=== PATIENT | male | born 1985 | race Caucasian/White ===

== ENCOUNTER 2019-08-04 09:00 | Outpatient (RCR) | payer OTHER, SELFPAY ==
--- NOTE | 2019-08-04 10:02 | BH.SGPN.GN ---
Behaviors/Verbalizations/Mental Status: []Client alert and oriented, neatly dressed and groomed. Eye contact intense. Motor activity appropriate. Speech within normal limits. Affect flat, mood dysthymic. Thoughts linear, logical, no signs of hallucinations or delusions. Client Response/Progress/Benefit: []Client was attentive and participating during discussion. Client participated in discussion of the quote and shared belief that people do not always have the choice of their circumstances, but one can control their response. Client nodding and attentive while the group identified barriers that keep one from choosing a new and healthier path to mental wellness which included; unhealthy habits, fear of failure, procrastination, stigma, lack of supports, and negative thinking. Client stated ?my ego gets in the way? of client reaching out for help. Attentive during psychoeducation on the chapters of life. Client agreed with peers to choose a different path, one needs awareness and opposite action. Client reported he was not sure what made him want to change his mental health path. Benefited from increased awareness and education on barriers to choosing new wellness paths and chapters of life. Client?s first day of IOP tx. Will continue IOP to prevent decompensation of symptoms and improve mood stability. Narrative Note: []
--- NOTE | 2019-08-04 10:55 | BH.COMM ---
Communication Note - Communication with Client Communication Note: Completed intake paperwork with client today. Completed the [place] Suicide Severity Scale (CSSR-S) Lifetime Recent to assess for suicidal risk. Client denies any history of suicidal ideations or attempts. Reports passive thoughts of of not wanting to wake up, but denies active SI, plan, and intent. Client reports his family is his major motivation to live. Client denies any current suicidal thoughts, intention and plan. Per the CSSR-S client has a low risk for suicide. Client feels able to maintain safety, agreeable to call 911 or go to nearest emergency room if feels unable to maintain safety.
--- NOTE | 2019-08-04 11:10 | BH.SGPN.GN ---
Behaviors/Verbalizations/Mental Status: []Client alert and oriented, casually dressed and groomed. Eye contact good. Motor activity appropriate. Speech within normal limits. Affect constricted, mood dysthymic. Thoughts linear, logical, no signs of hallucinations or delusions. Client Response/Progress/Benefit: []Client was an active participant in group discussion, contributing to discussion and listened attentively to others. Completed worksheet and willing to share with the group. Client reported believe he is currently in chapter 3? as client shared he has awareness of his triggers to anger, but continues to struggle with utilizing skills to manage his anger more effectively. Client shared to get to the next chapter he will take responsibility for his wrong doings, admit he needs help, and communicate to his supports how they can best support him. Client identified things currently doing that will help him get to the next chapter include communicating with family and friends how he is feeling and attempted to understand his feelings. Benefited from group by identifying thoughts and behaviors that have kept him stuck and developing plan to promote progress. Will continue in IOP to improve emotional regulation, continue to use healthy coping skills and prevent decompensation. Narrative Note: []
--- NOTE | 2019-08-05 10:20 | BH.SGPN.GN ---
Behaviors/Verbalizations/Mental Status: []Eye contact is good. Motor activity is appropriate. Appearance is casual. Speech is Appropriate. Mood is dysthymic. Affect is constricted. Thoughts are linear and logical. No evidence of psychosis. Client Response/Progress/Benefit: []Participated at times during discussions providing some insight. Attentive during psychoeducation on differences between fixed and growth mindset. Worked with group to identify how a fixed mindset can impact our mental health which included: not trying new things, believing can't get better, keeping us stuck, decreasing motivation, and avoiding challenges. Pt identified one fixed thought he has is, People don't care about me unless they need me. Pt stated this fixed thought results in him being unwilling to accept help. Pt reported another fixed thought he has is, I don't have enough energy to function today. Reported this fixed thought makes him not want to do anything. Benefited from group by increasing awareness of how one's mindset impacts our mental health. Narrative Note: []
--- NOTE | 2019-08-05 11:23 | BH.SGPN.GN ---
Behaviors/Verbalizations/Mental Status: []Client alert and oriented, casually dressed and groomed. Eye contact good. Motor activity appropriate. Speech within normal limits. Affect flat, mood dysthymic. Thoughts linear, logical, no signs of hallucinations or delusions Client Response/Progress/Benefit: []Client attentive, engaged during discussion and activity. Contributed to discussion on how the group was successful in the activity because they were encouraging and had growth-mindset thoughts. Client did well to apply cognitive restructuring to reframe previously identified fixed thoughts, transforming his fixed thought from previous group to a growth thought of ?people do care about me because they are still in my life.? Client shared he is trying to challenge his ego and ask for help when he needs it. Client participated as the group brainstormed strategies to promote growth-mindset thinking. Client selected the strategy of using not yet phrases to improve his growth-mindset thinking. Benefitted from discussing benefits of growth mindset and brainstorming strategies for prompting growth-mindset. Client?s second day of IOP. Appears to be assimilating well to the group setting and gaining insight. Will continue IOP tx to prevent decompensation and increase emotional regulation skills. Narrative Note: []
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
--- NOTE | 2019-08-05 11:59 | BH.DR.ITP ---
Initial Treatment Plan - Patient Information Visit Information: ADMISSION DATE: EXPECTED LOS: 4-6 weeks - Problems/Symptoms Problem #1:: Depression Symptom:: hopelessness, guilt, rumination, anger outbursts
--- NOTE | 2019-08-05 13:43 | BH.COMM ---
Communication Note - Communication with Client Communication Note: Therapist met with client to gather treatment goals and to introduce self as client's individual therapist. Client identified his treatment goals which included; becoming more willing to ask for help, reduce depression and be happier, better manage stressors in daily life, and improve energy levels. Client reports he is receptive to learning about how to better manage his depressive symptoms.
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
--- NOTE | 2019-08-06 09:05 | BH.SGPN.GN ---
Behaviors/Verbalizations/Mental Status: [] Eye contact is good. Motor activity is appropriate. Appearance is disheveled. Speech is Appropriate. Mood is anxious. Affect is congruent. Thoughts are linear and logical. No evidence of psychosis. Reviewed daily check in sheet and no reports of suicidal ideations or intent. Client Response/Progress/Benefit: [] Pt participated in group discussion at times. Emotion for today is optimistic. Shared that he reached out to friends whom he has not talked with in awhile. Positive interaction and they came over the house and they jammed. Played the [employer]Cloudwords for the first time in over a year. Feels optimistic about the future. Some insight on his personality stating the he often takes things to the extreme mentioning he rarely drinks however when he does he drinks too much. Progress noted per pt report. Benefited from group support, encouragement, and feedback. Will continue in IOP to stabilize mood, increase healthy coping, and prevent decompensation. Narrative Note: []
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
--- NOTE | 2019-08-06 11:14 | BH.SGPN.GN ---
Behaviors/Verbalizations/Mental Status: [Client alert and oriented, casually dressed and well groomed. Eye contact good. Motor activity appropriate. Speech within normal limits. Affect congruent, mood euthymic, anxious. Thoughts linear, logical, no signs of hallucinations or delusions.] Client Response/Progress/Benefit: [Client responded well to session, active participant. Client further processed the group activity and shared that trust, patience, a resendez encouragement helped the group accomplish the activity. Client completed the fear of failure worksheet and reported that fear of failure is keeping him from following through with goals and improving personal relationships. Client reported barriers for overcoming fear of failure are second guessing, guilt, difficulty communicating, and worrying that he will be judged by others. Client shared he has been able to bounce back from setbacks in the past and the positive thing he has learned from past failures is that failure can make you more resilient and teach you how not to cope. Client selected a goal to help overcome fear of failure. Client?s goal is to practice self-awareness and calming strategies, so he can prevent escalating to point of crisis. Client appeared to benefit from gaining awareness and setting a goal to reduce fear of failure. Client showing progress in utilizing healthy coping to skills to manage emotions. Recommended continued IOP tx to prevent decompensation, decrease depression, and maintain gains.] Narrative Note: []
[2019-09-09 12:01] VITALS: BP 121/93; PULSE 96; RESP 16
== END 2019-08-06 23:59 ==
LOC: BHIOP 09:00
PROVIDERS: Referring Provider Psychiatry & Neurology Psychiatry; Visit Provider Psychiatry & Neurology Psychiatry
DX: F33.2 Major depressive disorder, recurrent severe without psychotic features (principal); F98.8 Other specified behavioral and emotional disorders with onset usually occurring in childhood and adolescence; F17.210 Nicotine dependence, cigarettes, uncomplicated; F12.90 Cannabis use, unspecified, uncomplicated
CPT/HCPCS: H0035; 90853

== ENCOUNTER 2019-08-07 09:00 | Outpatient (RCR) | payer OTHER, SELFPAY ==
--- NOTE | 2019-08-07 10:15 | BH.SGPN.GN ---
Behaviors/Verbalizations/Mental Status: [Client alert and oriented, casually dressed and appropriately groomed. Eye contact good. Motor activity appropriate. Speech within normal limits. Affect congruent, mood anxious, dysthymic. Thoughts linear, logical, no signs of hallucinations or delusions] Client Response/Progress/Benefit: [Client an active participant in group AEB providing input, actively listening, as well as taking notes throughout. Group worked together to identify barriers to making changes or taking action in their lives which included: fear of the unknown, guilt, catastrophizing, shame, pride, fear of leaving comfort zone, denial of need to change, and lack of motivation. Group also identified the benefits of change which included; improved relationships, increased trust, emotion regulation, increased confidence, improved ability to manage stressors, and personal growth. Client identified areas he would like to take back control over to include: effective communication, guilt, ego, and pride. Benefited from group through increased awareness of personal areas she wants to improve and benefits to taking action towards mental wellness. Progress noted in personal reflection of areas he would benefit from making changes for her mental health. Pt is recommended continued IOP level of care to improve anger and depression management, ability to cope with stressors, and prevent decompensation.] Narrative Note: []
--- NOTE | 2019-08-07 11:18 | BH.SGPN.GN ---
Behaviors/Verbalizations/Mental Status: []Client alert and oriented, casually dressed and groomed. Eye contact good. Motor activity appropriate. Speech within normal limits. Affect constricted, mood dysthymic. Thoughts linear, logical, no signs of hallucinations or delusions. Client Response/Progress/Benefit: []Client was an active participant AEB client participating in discussion and working well in his small group. Client attentive and providing input to discussion of the different zones of taking action as well as the pros and cons of each. Client agreed with peers that it best to push oneself, but one does not want to burn out. Client completed worksheet in which he identified a problem area to focus on, a SMART goal to help work on problem area, and identify additional supports needed to be successful. Client identified he wants to stop withdrawing from his supports and start asking for help. Client identified a small goal which is to talk with one family member this week and tell them about his current mental health symptoms. Client stated additional supports needed to be successful with goal include: setting aside time, setting reminders, and using positive self-talk. Appeared to benefit from creating a small goal to help client reach out to supports and reduce isolative behaviors. Will continue IOP level of care to prevent decompensation of depressive symptoms and learn healthy coping skills. Narrative Note: []
--- NOTE | 2019-08-11 09:07 | BH.SGPN.GN ---
Behaviors/Verbalizations/Mental Status: []Client alert and oriented, casually dressed and groomed. Eye contact good. Motor activity appropriate. Speech within normal limits. Affect flat, mood dysthymic. Thoughts linear, logical, no signs of hallucinations or delusions. Reviewed client?s symptom tracker, no risk for suicidal ideation, plan, or intent as of 08/11/19. Client Response/Progress/Benefit: []Client responded well to session, attentive and engaged throughout session. Client reports feeling ?indifferent? today. Client shared he did not have a great weekend and that he and his got into an argument. Client reported his is willing to come in for a family session to help the couple communicate better. Client shared despite a challenging weekend, he did use some coping skills which included being honest about what was bothering him and taking care of some responsibilities instead of avoiding them. Client able to identify ways he can better manage conflict in the future such as taking breaks and using calming skills. Appeared to benefit from reviewing healthy coping skills. Progress noted in client?s increased self-awareness. Will continue IOP tx as client continues to struggle with mood instability and regulating his anger. Narrative Note: []
--- NOTE | 2019-08-11 10:20 | BH.SGPN.GN ---
Behaviors/Verbalizations/Mental Status: []Client alert and oriented, casually dressed and groomed. Eye contact good. Motor activity appropriate. Speech within normal limits. Affect constricted, mood dysthymic. Thoughts linear, logical, no signs of hallucinations or delusions. Client Response/Progress/Benefit: []Pt engaged participant AEB pt providing input during discussion and appeared to listen attentively to peers. Pt appeared to connect with others comments about the negative impact of defining self by mental illness. Group identified social stigma can come from how the media, society, and upbringing portray mental illness. Group identified media and society portray mental health as: dangerous, negative, not good enough, abnormal, and romanticize it. Pt stated he told his family about his mental health by telling his family I went crazy. Pt stated it's easier to use humor when talking about mental health. Pt seemed to benefit from increased awareness of how societal and internal mental health stigma can impact functioning. Pt progressing with improved insight and awareness of his negative thought patterns. Pt to continue IOP level of care to continue to use healthy skills, challenge negative thoughts, and prevent decompensation. Narrative Note: []
--- NOTE | 2019-08-11 11:25 | BH.SGPN.GN ---
Behaviors/Verbalizations/Mental Status: [Client alert and oriented, casually dressed and appropriately groomed. Eye contact good. Motor activity appropriate. Speech within normal limits. Affect congruent, mood anxious and dysthymic. Thoughts linear, logical, no signs of hallucinations or delusions.] Client Response/Progress/Benefit: [Client responded well to session, engaged in activity and discussion. Group identified the benefits of addressing stigma which included; increased self-confidence, feeling accepted, improved relationships, and less self-deprecation. Client helped the group identify thoughts and behaviors people engage in that reinforce stigma. Client reported he uses self-deprecating talk and ?ego? or pride reinforces stigma in his life. Group brainstormed strategies to combat social and perceived stigma which included; changing personal language used, sharing positive mental health related media, communicating with supports, and increasing psychoeducation of self and others to reduce labeling behaviors. Client reported he will practice increasing self-awareness and challenging use of distorted thoughts which reinforce unrealistic expectations of self/others to combat stigma. Appeared to benefit from increasing awareness of ways he reinforces stigma and how to combat stigma. Will continue IOP tx to further reduce isolation and avoidance, as well as increase the use of emotional regulation skills.] Narrative Note: []
--- NOTE | 2019-08-12 09:05 | BH.SGPN.GN ---
Behaviors/Verbalizations/Mental Status: []Client alert and oriented, casually dressed and groomed. Eye contact good. Motor activity appropriate. Speech within normal limits. Affect flat, mood depressed. Thoughts linear, logical, no signs of hallucinations or delusions. Reviewed client?s symptom tracker, no risk for suicidal ideation, plan, or intent. Client Response/Progress/Benefit: []Pt engaged in session as shown by pt openly expressing thoughts and emotions. Pt identified a mental health positive as improving his relationship with his daughter since he has more time home recently. Pt stated another mental health positive is doing something productive everyday, even when he is feeling bored. Pt identified current stressor as being marriage and fear of the unknown. Pt seemed to benefit from support by peers. Pt showing progress with increased awareness of distorted thoughts and improved ability to challenge his negative perspective. Pt to continue IOP to increase healthy coping, challenge negative thoughts, and prevent decompensation. Narrative Note: []
--- NOTE | 2019-08-12 10:22 | BH.SGPN.GN ---
Behaviors/Verbalizations/Mental Status: []Client alert and oriented, casually dressed and groomed. Eye contact good. Motor activity appropriate. Speech within normal limits. Affect flat, mood dysthymic. Thoughts linear, logical, no signs of hallucinations or delusions. Client Response/Progress/Benefit: []Client was an active participant as evidenced by providing to discussion and listening attentively to peers. The group discussed the quote and how the emotion anger is not good or bad, but one can respond to anger in healthy or harmful ways. Client worked with the group to define anger and its causes, as well as the internal and external impacts of anger. Group identified potential consequences of unhealthy management of anger to include: losing relationships, guilt, loss of job, increased stress, and worsening mental health symptoms. Client identified underlying factors of his anger which included: resentment, financial stress, feeling unheard, lack of understanding, jealousy, and not being respected. Client stated getting loud, acting out violently, saying things he does not mean, and being ?a smart ass? are common responses he has when feeling angry. Benefited from group by increasing awareness of the negative impacts of unmanaged anger and underlying factors that contribute to his personal anger. Progress noted as client reports he has been thinking more about his behaviors before reacting to situations. Will continue IOP tx to prevent decompensation and further improve emotional regulation skills. Narrative Note: []
--- NOTE | 2019-08-12 11:30 | BH.SGPN.GN ---
Behaviors/Verbalizations/Mental Status: [Client alert and oriented, casual dress, hygiene tended to. Eye contact good. Motor activity appropriate. Speech within normal limits. Affect congruent, mood euthymic. Thoughts linear, logical, no signs of hallucinations or delusions. ] Client Response/Progress/Benefit: [Pt remained an active participant throughout AEB engagement in both activity and discussion potions of session. Pt did well to challenge himself to complete the group activity and incorporate anger management/emotion regulation skills in order to do so. He worked with the group to identify the various barriers faced in the activity as well as skills used to successfully complete the task at hand without becoming dysregulated or overwhelmingly angry. Pt did well to utilize humor as a means of maintaining calm. Pt identified barriers impacting his ability to better manage anger related symptoms as: his ego, impatience, and focusing on things outside of his control. Pt appeared to benefit from discussion regarding potential benefits of anger and brainstorming with the group potential strategies for means of harnessing anger in healthy ways. Pt identified plans to begin using journaling as a means of coping with anger related sx. Recommended continued IPO tx to reduce mental health sx, continue to promote emotion regulation and effective communication, and prevent decompensation.] Narrative Note: []
--- NOTE | 2019-08-12 12:00 | BH.MDN_ITS ---
Multi-Disciplinary Note - Note 30-min Individual Time Started:: 12:27 Date: 08/12/19 Purpose of session/treatment goals addressed:: The purpose of this session was to address current symptoms, stressors, and supports. Another goal was to learn the common cognitive distortions and how they impact mental health. Other topics included maintenance cycles. Eye Contact:: Good Motor Activity:: Appropriate Appearance:: Casual Speech:: Soft Mood:: Euthymic Affect:: Constricted Thoughts:: Linear, Logical, No evidence of hallucinations/delusions noted Staff Interventions:: Therapist used active listening and open-ended questions to explore client's current stressors, symptoms, and barriers with support. Therapist provided psychoeducation on maintenance cycles and cognitive distortions. Therapist taught client how thoughts impact behaviors and emotions. Therapist used strengths perspective to empower client on his generalization of coping skills since starting the program. Therapist gave client homework to have awareness of distortions and write out his personal maintenance cycles. Client Response:: Client responded well to session, open to meeting with therapist and learning about maintenance cycles. Client reported he feels like he is managing his anger better and stated he has been keeping himself calm. When asked what has helped him stay calm, however, client could not identify a specific coping skill that helped with this. Client shared he wants to have his come in for a family session next week. Client reported he wants to work on better communication and patience with his . Client receptive to learning about the common distortions and connected with all of them. Client recognized that he most often uses disqualifying the positives, overgeneralizing, shoulding, and jumping to conclusions. Client able to see how these distortions impact behaviors and emotions. Connected how thoughts reinforce depressive maintenance cycles. Client receptive to identifying his personal maintenance cycles and practicing self-awareness of distortions. Risks/Concerns:: Client denies any suicidal ideations, plan, or intent as of 08/12/19. Future oriented and reporting a more positive outlook. Progress Toward Goals/Plan:: Client's second week in [facility] and seems to be assimilating well into the group setting. Reports increased awareness of symptoms and unhealthy coping skills. Client shared he has been trying to apply coping skills he has learned in group sessions. Client reported some side effects to medication and would like this therapist to communicate this to the [facility] psychiatrist. Client continues to endorse a depressed mood with irritability, rumination, guilt, and negative thinking. Client will continue IOP tx to promote use of healthy coping skills and prevent decompensation. Time Stopped:: 12:55
--- NOTE | 2019-08-13 09:10 | BH.SGPN.GN ---
Behaviors/Verbalizations/Mental Status: [] Eye contact is good. Motor activity is appropriate. Appearance is disheveled. Speech is Appropriate. Mood is depressed. Affect is flat. Thoughts are linear and logical. No evidence of psychosis. Reviewed daily check in sheet and no reports of suicidal ideations or intent. Client Response/Progress/Benefit: [] Pt participated at times during group discussion. Emotion for today anticipatory. Shared with the group that he had a good talk with his last night. Stated that the reached some common ground and he understands that he needs to be more empathetic. Briefly talked about the topics they discussed and why it was beneficial for his mental health and for their relationship. He even shared that he used some active listening skills with his yesterday as well which was helpful. Pt has also reached out to some friends and is planning to be more consistent with self-care and socialization to help with his stress and anger. Progress noted. Benefited from group support, encouragement, and feedback. Will continue in IOP to stabilize mood, prevent decompensation, and increase healthy coping skills. Narrative Note: []
--- NOTE | 2019-08-13 10:20 | BH.SGPN.GN ---
Behaviors/Verbalizations/Mental Status: []Client alert and oriented, casually dressed and groomed. Eye contact good. Motor activity appropriate. Speech within normal limits. Affect constricted, mood euthymic. Thoughts linear, logical, no signs of hallucinations or delusions. Client Response/Progress/Benefit: []Client responded well to session, attentive and participating in discussion. Client commented on quote and shared certain ?huitron? in life are placed by external circumstance-such as socioeconomic status-while other ?huitron? are put up by how one blaine with those circumstances. Participated in discussion of things that can keep people feeling trapped or stuck in life including; fixed thinking, not letting people in, alcohol and drugs, lack support, and lack of confidence. Group discussed the connection between thoughts, emotions, and behaviors as well as how negative thinking can keep a person stuck. Client attentive during psychoeducation on maintenance cycles and reports relating to the maintenance cycles. Client able to identify negative thoughts that have reinforced depression and kept client feeling trapped. Client shared negative thoughts that have kept him stuck which included: ?this is what I?ve been born into, this is just who I am, I don?t deserve to be happy, I don?t care for whoever?s opinion.? Appeared to benefit from gaining awareness of how negative thoughts reinforce mental health symptoms and keep people stuck. Progress noted in client?s report of increased awareness of his negative thoughts. Will continue IOP tx to prevent decompensation of depressive symptoms and increase emotional regulation. Narrative Note: []
--- NOTE | 2019-08-13 11:22 | BH.SGPN.GN ---
Behaviors/Verbalizations/Mental Status: []Client alert and oriented, casual in appearance. Eye contact fair. Motor activity appropriate. Speech within normal limits. Affect constricted, mood dysthymic. Thoughts linear, logical, no signs of hallucinations or delusions. Client Response/Progress/Benefit: []Client responded well to session, quiet, participating when prompted. Client appeared to connect with how negative thinking can keep a person stuck. Client identified a negative thought that has kept him stuck. Client?s thought was ?I don't care about my 's opinions.? Client stated when he has this thought he becomes dismissive, annoyed, agitated, and feels like he is not part of the conversation. Client able to reframe the thought to ?everyone wants to be heard and validated. This is something she is passionate about and this is someone I care about so I should care about their opinion.? Client shared this thought would improve his mental health because he would be more receptive of his 's opinions which would decrease fighting and improve his marriage. Client appeared to benefit from practicing challenging negative thinking. Client progressing with improved emotional regulation and awareness of unhealthy thought patterns. Client to continue IOP to continue to challenge and reframe negative thoughts, continue to use healthy coping, and prevent decompensation. Narrative Note: []
--- NOTE | 2019-08-14 10:22 | BH.SGPN.GN ---
Behaviors/Verbalizations/Mental Status: [Client alert and oriented, casually dressed and groomed. Eye contact good. Motor activity appropriate. Speech within normal limits. Affect congruent, mood euthymic. Thoughts linear, logical, no signs of hallucinations or delusions] Client Response/Progress/Benefit: [Client was an active participant in group activity and discussion, providing insight and asking questions throughout. Client connected with the topic and worked with group to identify common internal barriers that keep people stuck. Barriers discussed included; fear, feelings of guilt about the past, and unrealistic expectations for self and others. Client connected with discussion regarding how these barriers can impact relationships and mental health. Shared personal example of how fear has impacted his marriage. Client identified his current reality as feeling as though he is trapped in a machine and other?s have the controls. Noted that he feels similarly about his ability to make decisions in life. Shared feeling that it is all he can do to keep from being crushed by it. Client shared a realistic, desired reality would be taking over the controls and that the others are still around him but not in control. Client benefited from group as client was able to identify current mental health state and barriers that are impacting progress. Progress noted in ability to discuss how his internal barriers have maintained anger and reduced ability to connect with supports. Will continue IOP to increase consistent skill application, reduce anger and improve communication, and prevent decompensation.] Narrative Note: []
--- NOTE | 2019-08-14 11:22 | BH.SGPN.GN ---
Behaviors/Verbalizations/Mental Status: []Eye contact is good. Motor activity is appropriate. Appearance is casual. Speech is Appropriate. Mood is depressed. Affect is constricted. Thoughts are linear and logical. No evidence of psychosis. Client Response/Progress/Benefit: []Pt was an active participant in group discussion and activity. Able to identify fear of fighting change, not letting go of things can't control, misunderstanding situations, lacking empathy for others, not being assertive when needed, and not communicating his true feelings as obstacles which are preventing him from achieving him desired reality. Active during activity. Pt along with peers identified various obstacles during the activity and developed 3 strategies to overcome those obstacles to wellness and desired reality. Group wrote down the strategies and added them to their program binder. Benefited from group by identifying obstacles and solutions to desired reality. Narrative Note: []
--- NOTE | 2019-08-17 10:25 | BH.SGPN.GN ---
Behaviors/Verbalizations/Mental Status: []Client alert and oriented, casual in appearance. Eye contact fair. Motor activity appropriate. Speech within normal limits. Affect constricted, mood dysthymic. Thoughts linear, logical, no signs of hallucinations or delusions. Client Response/Progress/Benefit: []Client active participant as evidenced by client providing input throughout discussion and appeared to listen attentively to others. Client agreed with others that he experiences automatic negative thoughts. Client connected with the discussion about how distorted thought patterns can reinforce mental health symptoms. Client reported he has used fortune telling before having a conversation about how the other person is going to react. Client stated using fortune telling impacts his own behavior which then impacts relationships. Client reported with mental filter he can only look for the evidence he wants to see, which doesn't tend to be positive. Appeared to benefit from increasing awareness of cognitive distortions and how they can impact emotions and behaviors. Client to continue IOP to stabilize moods, continue use of healthy coping skills, and prevent decompensation. Narrative Note: []
--- NOTE | 2019-08-17 11:25 | BH.SGPN.GN ---
Behaviors/Verbalizations/Mental Status: []Client alert and oriented, disheveled appearance. Eye contact fair. Motor activity appropriate. Speech within normal limits. Affect constricted, mood irritable, dysthymic. Thoughts linear, logical, no signs of hallucinations or delusions. Client Response/Progress/Benefit: []Client responded well to session AEB participating in activity and contributing in group discussion. Client connected with the discussion about how distorted thought patterns can reinforce mental health symptoms. Client worked with the group on defining the various types of cognitive distortions and identifying how each distortion can negatively impact mental health. Client reported when he is depressed and anger it is hard to challenge his distortions and see things from a different perspective. Client acknowledged that replacing distorted thoughts will take time and effort. Client worked with his small group as they practiced thought challenging by identifying distortions and replacing them with more realistic statements. Client attentive during psychoeducation on strategies to combat distortions. Client selected the strategy of identifying the evidence and looking at both side of his negative thought. Appeared to benefit from increasing awareness of cognitive distortions and practicing thought challenging. Presents to group today with increased depressive symptoms due to a recent stressor with his . Will continue IOP tx to prevent decompensation and improve emotional regulation skills. Narrative Note: []
--- NOTE | 2019-08-17 14:51 | BH.MDN ---
Multi-Disciplinary Note - Note 45-min Individual Time Started:: 12:30 Date: 08/17/19 Purpose of session/treatment goals addressed:: The purpose of this session was to address current symptoms, stressors, and triggers. Another goal was to discuss how unmanaged stress impacts all areas of client?s life. Other topics included; family session and communication strategies. Eye Contact:: Fair Motor Activity:: Appropriate Appearance:: Casual Speech:: Soft Mood:: Dysthymic Affect:: Flat Thoughts:: Linear, Logical, No evidence of hallucinations/delusions noted Staff Interventions:: Therapist used active listening and open-ended questions to explore client's current stressors, symptoms, and triggers. Therapist provided psychoeducation on how stress impacts social, emotional, cognitive functioning. Therapist helped client gain awareness of how unmanaged stress impacts his relationship with his . Therapist assisted client in setting small goals for today to prevent client from continuing an ongoing depressive maintenance cycle. Therapist gave client homework to practice opposite action. Client Response:: Client responded well to session, open to meeting with therapist. Client reported his weekend did not go well as he and his fought, and he fell back into some old, unhealthy patterns. Client shared he threw an ottoman and yesterday he laid on the couch all day. Client acknowledged that this was not a healthy way to deal with his depression. Client stated that he and his have many communication issues and that it is hard for him to make progress because of this. Client receptive to learning about stress and how it impacts one's social, cognitive, and emotional functioning. Client reports currently his stress jar is completely full and he believes his 's is as well. Client able to recognize that because both he and his are so stressed, any small thing sends them over the edge which results in fighting. Receptive to learning ways to reduce and better manage stressors to prevent unhealthy responses. Client plans to reach out to a friend today and to do something physical to release emotions. Client also will talk with his about the upcoming family session. Client and therapist discussed goals and expectations for the family session as well. Risks/Concerns:: Client denies any suicidal ideations, plan, or intent as of 08/17/19. Progress Toward Goals/Plan:: Client has been doing well with learning coping skills and he self-reports increased insight. However, client today presents with increased depressive symptoms due to issues with his over the weekend. Client shared he has been trying to apply coping skills he has learned in group sessions, but he and his continue to have problems. Client?s is receptive to coming in for a session this week. Client continues to endorse a depressed mood with irritability, rumination, guilt, and negative thinking. Client will continue IOP tx to prevent decompensation of anger and depressive symptoms as well as improve interpersonal relationship skills. Time Stopped:: 13:15
--- NOTE | 2019-08-18 09:08 | BH.SGPN.GN ---
Behaviors/Verbalizations/Mental Status: [Client alert and oriented, casual dress, hygiene tended to. Eye contact good. Motor activity appropriate. Speech within normal limits. Affect congruent, mood euthymic and positive. Thoughts linear, logical, no signs of hallucinations or delusions. Reviewed client?s symptom tracker, no signs of suicidal ideation, plan, or intent as of today. ] Client Response/Progress/Benefit: [Pt responded well to session, actively engaged throughout and providing increased positive contributions to group. Pt noted his emotion for the day is ?hopeful? and indicated that this is due to his ?s willingness to continue to work with him on improving their relationship. Pt identified that ongoing marital tension is the major stressor impacting his mental health at this time. Able to identify current mental health wins as not letting various ?rough moments? in the weekend discourage him and instead reminded himself ?we are working on things and each day it?ll get a little bit better?. He expressed an additional win as realizing when he was beginning to shut down on Saturday and practicing applying positive self-talk and self-compassion skills to keep from maintaining his depressed mood. Pt progress noted in increased levels of insight and he appears to benefit from the shared experience of the tx environment. Recommended continued IOP tx to continue to promote change behaviors, increase emotion regulation skills, and prevent decompensation.] Narrative Note: []
--- NOTE | 2019-08-18 10:25 | BH.SGPN.GN ---
Behaviors/Verbalizations/Mental Status: []Client alert and oriented, casually dressed and groomed. Eye contact good. Motor activity appropriate. Speech within normal limits. Affect congruent, mood euthymic. Thoughts linear, logical, no signs of hallucinations or delusions. Client Response/Progress/Benefit: []Client receptive of session, attentive in discussion and activity. Client discussed the quote and shared ?managing emotions doesn?t mean suppressing them.? Client helped group identify the consequences of not effectively managing emotions which included; strained relationships, guilt, suppressing emotions, increased negative thinking, resentment, blowing things out of proportion, and impulsive behaviors. Group identified barriers that impact one?s ability to communicate when emotions are high. These barriers included; acting on impulse, shutting down, physical aggression, assumptions, and misinterpretations. Client shared that he has communicated his emotions through behavior before which ?just leads to self-sabotage.? Client participated in the activity and did well to manage his emotions. Client appeared to benefit from increasing awareness of how emotions can impact communication and practicing in the moment coping skills. Progress noted as client reports improved self-awareness and learning healthy coping skills. Will continue IOP tx as client continues to struggle with emotional regulation and managing depressive symptoms. Narrative Note: []
--- NOTE | 2019-08-19 09:04 | BH.SGPN.GN ---
Behaviors/Verbalizations/Mental Status: []Client alert and oriented, casually dressed and groomed. Eye contact good. Motor activity appropriate. Speech within normal limits. Affect constricted, mood euthymic. Thoughts linear, logical, no signs of hallucinations or delusions. Reviewed client?s symptom tracker, no risk for suicidal ideation, plan, or intent as of 08/19/19. Client Response/Progress/Benefit: []Client responded well to session, attentive and contributing to discussion. Client reports feeling ?content? today. Client shared he and his did not fight last night and he has been trying to be a better communicator. Client stated he has been trying to listen more and see things from his ?s perspective. Client recognizes that he has a long way to grow, but he feels more confident in his ability to manage conflicts. Client?s stressor today is that he is worried about his finances, but he reports belief this will be a temporary stressor. Appeared to benefit from reflecting on how he can better manage conflict with his . Will continue IOP tx to promote mood stability, further decrease anger, and improve communication skills. Narrative Note: []
--- NOTE | 2019-08-19 10:08 | BH.SGPN.GN ---
Behaviors/Verbalizations/Mental Status: []Eye contact is good. Motor activity is appropriate. Appearance is casual. Speech is Appropriate. Mood is dysthymic. Affect is flat. Thoughts are linear and logical. No evidence of psychosis. Client Response/Progress/Benefit: []Pt was an engaged participant in activity as evidenced by pt providing input at times during discussion and attentively listened to others. Group worked together to come up with common negative forces in their lives which can hold them back from growth. Negative forces included: toxic relationships, negative thoughts, low motivation, and unhealthy environment. Group then worked together to identify common positive forces which help us grow. These included: Healthy coping skills, positive support, self-care, patience, realistic and positive thinking, and following treatment suggestions. Pt stated he recognizes he can't just focus on negative forces in his life or he will just stay stuck. Pt was attentive during psychoeducation on the importance of utilizing many aspects of positive forces to help one grow. Benefited from group with increased insight and awareness on the impact of negative and positive forces on mental wellness. Narrative Note: []
--- NOTE | 2019-08-19 11:07 | BH.SGPN.GN ---
Behaviors/Verbalizations/Mental Status: [Client alert and oriented, casually dressed and groomed. Eye contact good. Motor activity appropriate. Speech within normal limits. Affect constricted and mood anxious. Thoughts linear, logical, no signs of hallucinations or delusions.] Client Response/Progress/Benefit: [Client willing to participate in activity and provided some input during discussion. He did well to work with the group and actively listen as others provided suggestions/feedback. Client engaged in discussion reviewing positive and negative forces impacting life and mental wellness. Client identified positive forces that aid in progressing toward mental health goals include: effective communication, willingness to keep trying, and therapy. Client indicated negative forces include: difficulties regulating emotions, relationship problems, and difficulties in communicating. Progress noted in client ability to identify ways in which internal forces can impact personal growth. Client seemed to benefit from increased awareness of personal positive and negative forces in life and impact they have on mental health and wellness. Client to continue IOP level of care to continue to challenge distorted thought patterns, improve ability to regulate emotions, and prevent decompensation.] Narrative Note: []
--- NOTE | 2019-08-19 13:28 | PCM.BH.PN_ITS ---
Progress Note Progress Note: History of Present Illness/Interim History: [] Patient is a 33-year-old male with a history of depression and ADD who is seen in follow-up at the [facility] IOP unit. He feels he is doing well in the IOP program and is learning skills that have helped to manage his mental health issues. He feels that his marital issues are improving and he is learning tools to regulate his behavior more adequately. He is currently living with his and he says for the past 3 or 4 days they have been getting along better. 4 days ago he did have an argument with his where he picked up in [place] and threw it. However he said he was in control at the time and was careful and not even attempted to do any kind of violence towards his . I last saw him 2 weeks ago and at that time I prescribed Lamictal. The patient for some reason is taking only half a tablet a day instead of 1 a day for the past 10 days. I discussed the proper way to take his Lamictal with with him. He feels that his mood is not as extreme in its fluctuations lately. He denies any suicidal or homicidal ideation. He described a decreased urine stream in recent days but he says this has pretty much resolved now. He described a history of premature ejaculation one time but he has not had sex since then and that was about a week ago so is not sure what that was due to. He is having occasional night sweats which he understands could be due to his Effexor and/or Strattera. He feels his mood is slowly improving. Current Psychiatric Medications: [] Effexor XR 112.5 mg p.o. daily; Strattera 40 mg p.o. daily (since July 29, 2019). Lamictal 25 mg he was supposed to be taking 1 p.o. daily for 14 days followed by 2 p.o. daily. But the patient has been taking only 1/2 tablet daily for the past 10 days. Mental Status Examination: [] Is a 33-year-old male who appears normal for stated age. He is casually dressed and groomed with good hygiene. He is cooperative during the interview with good eye contact. Speech is normal rate and rhythm and fluent with no pressure. Mood is depressed but improving. Affect is euthymic today. Thought process: Goal-directed and organized. Thought content: No evidence of suicidal homicidal ideation. No evidence of hallucinations or delusions. Judgment is intact. Insight: Improving. Impulsivity low to moderate. Diagnoses: [] [place] I: [] Major depressive disorder recurrent severe without psychosis; attention deficit disorder [place] II: []cluster B traits [place] III: [] Negative [place] IV:[]] Primary support?marital; financial issues Plan: [] We will continue the IOP program at [facility] as the support, structure, education, individual and group therapy will hopefully continue to benefit the patient and prevent worsening of his symptoms. He felt safe during the interview and if it any time he does not feel safe he will notify us or go to the emergency room. The risks, options, possible side effects and complications of the medications were discussed again with the patient and he understands and accepts these. He will continue the current doses of Effexor XR and Strattera. He will increase his Lamictal to 25 mg p.o. daily for the next 6 days and then he will take to Lamictal or 50 mg p.o. daily for 14 days. He understands if he notices any rash symptoms he will tell us immediately and stop the Lamictal. A refill was given to the patient for his Strattera today. See him in 2 to 3 weeks.
--- NOTE | 2019-08-20 16:36 | BH.MDN ---
Multi-Disciplinary Note - Note Family Time Started:: 15:00 Date: 08/20/19 Purpose of session/treatment goals addressed:: The purpose of this session was to engage client's , Jesusita, in client's treatment by providing psychoeducation and communicating client's support needs. Another goal was to review conflict resolution and communication strategies. Other topics included the five love languages. Eye Contact:: Good Motor Activity:: Appropriate Appearance:: Neat Speech:: Soft Mood:: Anxious, Dysthymic Affect:: Congruent Thoughts:: Linear, Logical, No evidence of hallucinations/delusions noted Staff Interventions:: Therapist used open-ended questions and active listening to gather information on the couple's expectations for the session. Therapist advocated for client by providing psychoeducation on depression and discussing expectations for progress. Therapist validated both client?s and his ?s emotions and frustrations. Therapist helped the couple identify areas they could improve upon in order to better support one another and communicate more effectively. Therapist taught the couple the fie love languages and encouraged them to take the online test. Therapist reviewed fair fighting rules and healthy stress management strategies. Therapist helped the couple set goals and gave client and his homework to practice healthy conflict resolution and communication strategies. Therapist also gave client and his a list of marriage therapists in their area. Client Response:: Client and his responded well to session, open to meeting with therapist. Client identified his expectations for session which included wanting to improve communication and decrease fighting. Client's also reported we have a lot communication problems and also shared that she is having a hard time because client continues to be mean. Client acknowledged that his past behaviors and aggressiveness with his was a traumatic experience for his . Receptive to psychoeducation from therapist on trauma and depression. The couple both report they want to support each other and make this relationship work. Willing to both set goals and work on improving communication, better managing stress, and reducing unhealthy emotion urges. Client willing to do more house work, be more transparent with his emotions, and walk away before saying hurtful things instead of after. Client's is willing to work on not nitpicking so much and taking time for herself after work so she is less stressed when she gets home. Receptive to discussion of the love languages and shared that makes a lot of sense. Therapist reminded client and his that progress takes time and that healing from the past will be an ongoing process for both client and his . Risks/Concerns:: Client denies any suicidal ideations, plan, or intent as of 08/20/19. Future oriented throughout session. Progress Toward Goals/Plan:: Client continues to show strides as evidenced by his increased self-awareness and report of increased motivation to change. Client?s shared her concerns for client?s limited progress, but she also recognized that her stress and high expectations may be causing her to not see growth. Client continues to report he has been trying to use coping skills outside of group sessions, but client acknowledges he still struggles with managing his anger and using effective communication with his . Client continues to endorse a depressed mood with irritability, rumination, guilt, and negative thinking. Client will continue IOP tx to promote use of healthy coping skills, improve interpersonal effectiveness skills, and prevent decompensation. Time Stopped:: 16:00
--- NOTE | 2019-08-21 09:10 | BH.SGPN.GN ---
Behaviors/Verbalizations/Mental Status: [] Eye contact is good. Motor activity is appropriate. Appearance is casual. Speech is Appropriate. Mood is depressed. Affect is flat. Thoughts are linear and logical. No evidence of psychosis. Reviewed daily check in sheet and no reports of suicidal ideations or intent. Client Response/Progress/Benefit: [] Pt participated at times in group discussions. Emotion for today is calm. Shared that yesterday was very productive and that he worked on his relationship with his . They spent some quality time together and they also completed couple's counseling. Believes that they were able to identify some areas to make changes. Notes that they did not argue yesterday and things felt less tense. Was also able to relate to a event that occurred in an [employer] game yesterday to his mental health. Progress noted. Benefited from group support, encouragement, and praise. Will continue in IOP to stabilize mood, increase healthy coping skills, and prevent decompensation. Narrative Note: []
--- NOTE | 2019-08-21 10:18 | BH.SGPN.GN ---
Behaviors/Verbalizations/Mental Status: [Client alert and oriented, casually dressed and groomed. Eye contact good. Motor activity appropriate. Speech within normal limits. Affect congruent, mood dysthymic. Thoughts linear, logical, no signs of hallucinations or delusions. ] Client Response/Progress/Benefit: [Client active participant AEB active engagement in group activity, taking notes, and listening attentively to peers. Client reported that the definition of resilience includes being open to criticism and feedback as well as willing to be open minded to different ways of doing things. He shared that difficulties with being unwilling to change can negatively impact resilience. Client attentive during discussion on connections between activity and barriers/supports to development of a resilient lifestyle. Client agreed with peers that one can learn to become more resilient throughout life. Client benefitted from brainstorming benefits of being resilient which included: increased self-confidence, increased ability to find different solutions to setbacks, and improved personal relationships. Client is progressing with increased use of emotion regulation skills to improve anger management outside treatment environment. Recommended continued IOP tx to promote healthy change behaviors, improve emotionregulation skills and depression management, as well as maintain gains.] Narrative Note: []
--- NOTE | 2019-08-21 11:20 | BH.SGPN.GN ---
Behaviors/Verbalizations/Mental Status: []Client alert and oriented, casually dressed and groomed. Eye contact good. Motor activity appropriate. Speech within normal limits. Affect congruent to topic being discussed, mood euthymic. Thoughts linear, logical, no signs of hallucinations or delusions. Client Response/Progress/Benefit: []Client engaged participant as evidenced by client providing input throughout discussion and listening attentively to peers. Client worked cooperatively with peers to identify how each strategy can help increase resiliency. Client reported he wants to work on the resiliency component of taking decisive action. Client stated he struggles with making decisions, which results in him either not making a decision or having others decide for him. Client stated he will work on taking decisive action by writing down his potential decisions to help him see his options. Client appeared to benefit from identifying goal to improve personal resilience factors. Client to continue IOP to continue use of healthy coping skills, challenge and identify distorted thought patterns and prevent decompensation. Narrative Note: []
--- NOTE | 2019-08-24 09:02 | BH.SGPN.GN ---
Behaviors/Verbalizations/Mental Status: []Client alert and oriented, neatly dressed and groomed. Eye contact good. Motor activity appropriate. Speech within normal limits. Affect congruent, mood euthymic. Thoughts linear, logical, no signs of hallucinations or delusions. Reviewed client?s symptom tracker, no risk for suicidal ideation, plan, or intent as of 08/24/19. Client Response/Progress/Benefit: []Client responded well to session, positive and engaged throughout. Client reports feeling ?fantastic? today. Client shared he had a good weekend with his and they did not fight ?even though there were tense moments.? Client reported they have a common understanding not to act on tense moments as in the past it resulted in unhealthy responses to conflict. Client also spent time with his daughter over the weekend and client stated his daughter has been listening better. Client stated he does not have any stressors today. Encouraged by therapist to continue utilizing healthy coping skills to promote maintenance. Appeared to benefit from reflecting on gains made during IOP. Will continue tx to promote mood stability and further improve interpersonal relationship skills.? Narrative Note: []
--- NOTE | 2019-08-24 10:14 | BH.SGPN.GN ---
Behaviors/Verbalizations/Mental Status: []Client alert and oriented, casually dressed and groomed. Eye contact good. Motor activity appropriate. Speech within normal limits. Affect congruent, mood euthymic. Thoughts linear, logical, no signs of hallucinations or delusions. Client Response/Progress/Benefit: []Pt was an active participant in group discussion and listened attentively to others comments. Group discussed the MH benefits to having open and clear communication with support and providers. Group discussed the barriers that tend to impact clear and open communication which include: making assumptions, communicating with behavior, non-verbal communication, tone of voice, and misinterpretation. Pt stated poor communication can lead him to catastrophize and overreact to situations. Pt stated effective communication is an essential skill in all parts of life. Pt was attentive during psycho-education on communications styles (aggressive, passive, passive-aggressive, and assertive). Also provided input on the pros and cons to each communication style. Pt seemed to benefit from increased insight on how the way he communicates impacts his mental health. Pt to continue IOP level of care to continue utilization of healthy coping skills, challenge distorted thoughts and prevent decompensation. Narrative Note: []
--- NOTE | 2019-08-24 11:17 | BH.SGPN.GN ---
Behaviors/Verbalizations/Mental Status: [Client alert and oriented, casually dressed and appropriately groomed. Eye contact good. Motor activity appropriate. Speech within normal limits. Affect congruent, mood euthymic. Thoughts linear, logical, no signs of hallucinations or delusions] Client Response/Progress/Benefit: [Client active participant AEB her positive contributions and engagement throughout, nodding throughout discussion. Client reported he can range from passive to aggressive communication styles depending on the person and situation though notes working hard to move towards more assertive communication. Client discussed that this often led to increased conflict or resentment and damaged relationships. Noted a desire to begin moving closer towards assertive communication styles. Client took an active role during the discussion reviewing different communication styles and why each may be used, as well as how ineffective communication negatively impacts mental health and relationships. Client identified his communication goal which is to practice regularly checking in with himself and actually making efforts to communicate stressors/concerns with his supports rather than shutting down. Client seemed to benefit from increased insight into how his communication style impacts mental health and identifying strategies for increasing effective communication skills. Client discussed speaking with a smile as a potential strategy for preventing anger escalation. Progressing as shown by his report of improved use of emotion management skills and increased communication with supports. Will continue IOP tx to promote mood stability and anger management, further improve daily functioning, and prevent decompensation.] Narrative Note: []
--- NOTE | 2019-08-25 09:10 | BH.SGPN.GN ---
Behaviors/Verbalizations/Mental Status: [] Eye contact is good. Motor activity is appropriate. Appearance is casual. Speech is Appropriate. Mood is depressed. Affect is flat. Thoughts are linear and logical. No evidence of psychosis. Reviewed daily check in sheet and no reports of suicidal ideations or intent. Client Response/Progress/Benefit: [] Pt was an active participant in group discussion. Emotion for today is excited. Shared that he reached out to his friends and that had a conversation about visiting the grave of another friend. Mentioned that he has not done this however feels that it is important for closure. Notes improved communication with which had also improved their relationship. Completing responsibilities. Mood has been stable. No anger outbursts. Feels that he is making progress in several area of his life. Progress noted. Benefited from group support, encouragement, and feedback. Will continue in IOP to prevent decompensation, increase healthy coping, and increase functioning to return to work. Narrative Note: []
--- NOTE | 2019-08-25 10:17 | BH.SGPN.GN ---
Behaviors/Verbalizations/Mental Status: [Client alert and oriented, casual dress, hygiene tended to. Eye contact good. Motor activity appropriate. Speech within normal limits. Affect congruent, mood euthymic, positive. Thoughts linear, logical, no signs of hallucinations or delusions.] Client Response/Progress/Benefit: [Pt engaged in session as evidenced by pt listening during discussion, taking notes, and providing input throughout. Pt stated he believes people run away from problems because fear, unwillingness to put in the effort to improve, and lack of appropriate emotion regulation skills. Pt stated he has run away from his problems in the past by avoiding, minimizing, and not communicating with supports. He shared that this has led to anger/agitaton and increase fear of addressing personal problems. Pt worked with peers to brainstorm the components of A,B,C,D,E problem solving method and did well to begin to apply such during the group experiential activity, as well as take on a supportive role during such. Pt seemed to benefit from learning about problem solving method and rehearsing problem-solving skills in the moment. Progress noted in ability to connect activity to personal stressors experienced in own daily life. Pt to continue IOP level of care to decrease mental health symptoms contributing to anxiety and emotion dysregulation, increase utilization of healthy coping, and prevent decompensation.] Narrative Note: []
--- NOTE | 2019-08-25 11:17 | BH.SGPN.GN ---
Behaviors/Verbalizations/Mental Status: []Client alert and oriented, neatly dressed and groomed. Eye contact good. Motor activity appropriate. Speech within normal limits. Affect congruent-smiling, mood euthymic. Thoughts linear, logical, no signs of hallucinations or delusions. Client Response/Progress/Benefit: []Client was an active participant in group activity and discussion. Client processed challenge activity with fellow participants and made connections with the barriers to problem solving encountered. Client completed a problem-solving worksheet in which he identified a current problem impacting mental health as acting on emotion and anger management and developed a [id number] plan to address this problem. Client identified steps such as communicating emotions and needs when they arise, following through with commitments and promises, listening to others, taking time for a creative outlet, and spending quality time with his family. Client identified barriers that could prevent client working on his steps which included; lack of motivation to do the ?boring? things, not remembering his end goal, and issues with communication. Client did well to brainstorm strategies for overcoming barriers and was open to feedback from the group.? Client reported he plans to work on his barrier of lack of motivation for the ?boring? things by building momentum and listening to music to make things more enjoyable. Benefited from creating a personalized plan which client identified barriers and steps to work on a mental health problem. Will continue IOP tx to further decrease anger and improve emotional regulation skills. Narrative Note: []
--- NOTE | 2019-08-28 11:25 | BH.SGPN.GN ---
Behaviors/Verbalizations/Mental Status: []Client alert and oriented, neatly dressed and groomed. Eye contact good. Motor activity appropriate. Speech within normal limits. Affect congruent, mood euthymic. Thoughts linear, logical, no signs of hallucinations or delusions. Client Response/Progress/Benefit: []Client responded well to session, engaged throughout and providing ideas during group brainstorming. Client appeared to connect with the activity from second group and helped the group identify benefits of having a strong foundation of internal and external coping skills. Client shared he used to struggle with having a balance of internal and external coping skills, but now he is learning how to ask for help and use coping skills as well. Client helped the group discuss the different categories of coping skills and provided examples. Client able to provide numerous examples of healthy coping skills, but he had to leave group before sharing his coping skill ?menu.? Client appeared to benefit from increasing his repertoire of healthy coping skills. Progress noted in client?s increased self-awareness and report of applying healthy coping skills on a more consistent basis to reduce anger. Client will continue IOP tx to further decrease his symptoms and improve interpersonal effectiveness skills. Narrative Note: []
--- NOTE | 2019-08-28 14:22 | BH.MDN_ITS ---
Multi-Disciplinary Note - Note 45-min Individual Time Started:: 09:20 Date: 08/28/19 Purpose of session/treatment goals addressed:: The purpose of this session was to address current symptoms, stressors, and negative thoughts. Another goal was to set small goals and practice cognitive restructuring. Eye Contact:: Good Motor Activity:: Appropriate Appearance:: Neat Speech:: Appropriate Mood:: Euthymic Affect:: Congruent Thoughts:: Linear, Logical, No evidence of hallucinations/delusions noted Staff Interventions:: Therapist used active listening and open-ended questions to explore client's current stressors, symptoms, and negative thoughts. Therap ist used strengths perspective to empower client on his application of coping skills and to review progress. Therapist helped client break down barriers to starting new healthy habits, and taught client habit-stacking. Therapist provided psychoeducation on cognitive distortions and practiced cognitive restructuring by using a thought log with client. Therapist gave client homework to work on his habit-stacking goal and to challenge one thought per day using his thought log. Client Response:: Client responded well to session, open to meeting with therapist. Client reports he and his have been interacting better since the family session which has improved his mood. Client shared my depression has significantly decreased which client contributes to improvements in his relationship with his this week. Client reported he has been less responsive to anger by practicing taking steps back to process before reacting to situations. Client also shared that he has been practicing using opposite action which has helped client be more productive at home. Client receptive to practicing thought challenging as he continues to catch himself being negative. Client read the handout provided by therapist on questions to ask yourself to challenge negative thoughts. Client identified questions that connect with him the most to be; am I confusing a thought with a fact, am I using ultimatum words in my thinking, am I having double standards, and am I assuming my way is the best. Client willing to practice though challenging using a thought log. Client willing to challenge negative thoughts once a day over the weekend. Client reported he wants to gain healthier habits in addition to thought challenging. Client learned about habit-stacking and reported plans to try making tea in the morning when he listens to talk radio. Risks/Concerns:: Client denies any suicidal ideations, plan, or intent as of 09/01/19. Future oriented throughout session. Progress Toward Goals/Plan:: Client continues to show strides as evidenced by his increased self-awareness and report of increased motivation to change. Per client?s report, he and his have been getting along better and communicating more effectively since the family session. Client self-reports reduced depression and being less responsive to anger. Client continues to struggle with challenging negative thoughts, defensiveness, and having double standards. Client continues to endorse a depressed mood with irritability, rumination, guilt, and negative thinking. Client will continue IOP tx to promote use of healthy coping skills, improve interpersonal effectiveness skills, and promote the use healthy emotional regulation skills. Time Stopped:: 10:00
--- NOTE | 2019-08-28 20:00 | BH.SGPN.GN ---
Behaviors/Verbalizations/Mental Status: [] Eye contact is good. Motor activity is appropriate. Appearance is casual. Speech is Appropriate. Mood is depressed. Affect is flat. Thoughts are linear and logical. No evidence of psychosis. Client Response/Progress/Benefit: [] Pt was an active participant in group activity and discussion. Attentive during psycho-education. Worked with peers to define coping skills which included; skills to use to get us through difficult times, techniques to manage emotions, and reactions to lessen an emotional state. Group also worked together to identify how we learn our coping skills through up-bringing, habits, watching our support, trial/error, TV, and counseling. Group discussed that not all coping skills are healthy and identified common unhealthy coping skills such as; isolating, avoidance, substance abuse, using anger as a release, self-harm, reassurance-seeking, sleep, eating, and negative self-talk. Pt participated in group activity with peers. After the group they related the activity to coping skills stating that when developing coping skills it is important to have both internal and external coping skills to help. Pt benefited from increased insight and education on healthy vs unhealthy coping and internal vs external coping skills. Narrative Note: []
--- NOTE | 2019-09-01 09:15 | BH.SGPN.GN ---
Behaviors/Verbalizations/Mental Status: []Client alert and oriented, neatly dressed and groomed. Eye contact good. Motor activity appropriate. Speech within normal limits. Affect flat, mood mellow Thoughts linear, logical, no signs of hallucinations or delusions. Reviewed client?s symptom tracker, no risk for suicidal ideation, plan, or intent as of 09/01/19. Client Response/Progress/Benefit: []Client responded well to session, attentive and engaged throughout. Client reports feeling ?even-keeled? today. Client shared he has been following through with his habit-stacking goal of making tea every morning. Client stated his daughter has been doing a better job of listening to him and changing behaviors which is positive. Client reported he and his ?were at odds? this weekend which resulted in client feeling tense. Client stated he was able to prevent himself from going into a depressive cycle by practicing opposite action. Client shared instead of isolating he cleaned his furnace and swept. Client able to recognize that when he acts opposite of his emotions, he tends to have better results. Client appeared to benefit from connecting with peers and reflecting on his use of coping skills. Progress noted as client has been reporting reduced impulsive behaviors and anger. Will continue IOP tx to promote use of emotional regulation skills and to further decrease depression. Narrative Note: []
--- NOTE | 2019-09-01 10:29 | BH.SGPN.GN ---
Behaviors/Verbalizations/Mental Status: [Client alert and oriented, casually dressed and groomed. Eye contact good. Motor activity appropriate. Speech within normal limits. Affect congruent, mood anxious and euthymic. Thoughts linear, logical, no signs of hallucinations or delusions.] Client Response/Progress/Benefit: [Pt receptive to session, provided input and actively listening throughout discussion on stress. Able to brainstorm with the group positive and negative aspects of stress on physical and mental health. Pt participated in identifying current stressors impacting mental health. Pt's current stressors include: financial problems, mental health, time management, work environment, and relationships. Pt noted that his most significant stressors are currently family/relationship issues. Appeared to benefit from gaining awareness of own current stressors and learning about the impact stress has on overall wellbeing. Progress noted in improved engagement in group and application of skills outside treatment environment to better manage anger/regulate emotions. Recommend continued IOP tx to improve emotion regulation and depression symptom management, improve utilization of healthy coping, and prevent decompensation.] Narrative Note: []
--- NOTE | 2019-09-01 11:30 | BH.SGPN.GN ---
Behaviors/Verbalizations/Mental Status: []Eye contact good. Motor activity is appropriate. Appearance is casual. Speech is appropriate rate and tone. Mood is dysthymic. Affect is congruent with mood. Thoughts are linear and logical. No evidence of psychosis. Client Response/Progress/Benefit: []Pt engaged in session as evidenced by pt listening attentively to others, giving ideas during activity, and providing input throughout session. Pt worked with the group to complete the challenge activity. Pt reported feeling stressed during the activity, but was able to use laughter and thought challenge skills to manage emotions. Pt actively listening during discussion about the 4 A's of managing stress. Identified he will focus on improving his relationships by adapting his behaviors so he is more productive on a daily basis. Pt seemed to benefit from increased awareness of the impact of stress on mental health and increasing repertoire of stress management strategies. Pt to continue in IOP to prevent decompensation, maintain gains, and challenge distorted thoughts. Narrative Note: []
--- NOTE | 2019-09-01 13:13 | BH.MTP_ITS ---
Treatment Plan Review Date of Admission:: 08/04/19 Date of Treatment Plan Review:: 09/01/19 Admitting Diagnoses:: Major depressive disorder recurrent severe without psychosis F33.2; rule out ADHD; Cluster B traits Current Diagnoses:: Major depressive disorder recurrent severe without psychosis F33.2; rule out ADHD; Cluster B traits Patient's Response to Treatment:: Client responded well to treatment so far as shown by his overall consistent attendance, active participation, and reduction of overall DSM-5 symptoms. Client is an active participate who frequently contributed to discussions and takes notes. Client appears open-minded during se ssions and is willing to explore new ideas. In individual sessions, client is receptive to learning new coping skills and was engaged in his treatment. Client is receptive to feedback from therapist on how to improve his emotional regulation, conflict resolution, and communication skills. Per client?s report, he is consistently applying thought challenging and opposite action. However, he is less consistent with using healthy communication skills and maintaining routine, but client shares ?I?m trying.? Client shares he sees progress in being more understanding of others, recognizing his negative thinking, and reducing impulsivity. At review, client?s DSM-5 symptom scores decreased by 25%. Client?s DSM-5 scores for depression increased since admission going from 4/8 to 5/8. Client reports belief that his symptoms increased because ?I?m actually addressing things.? Client reports feeling more attached and connected to people now than he did at the beginning of IOP which is positive, and he reports less isolation. Client?s anger decreased from admission going from 3/4 to 2/4 at review. Client also reports increased awareness of negative thinking patterns that reinforce anxeity and depression which will promote progress. Status of Current Problems and Symptoms: Client continues to struggle with challenging negative thoughts, defensiveness, and having double standards. Client continues to endorse a depressed mood with irritability, rumination, guilt, and negative thinking. Client is working to increase his consistency in applying healthy coping skills and sticking with healthy routines. Client and his recently had a family session, which client reported helped them improve communication. However, client reports he continues to struggle with regulating his emotions and stopping himself from saying hurtful things at times. Problem #1 Problem Name:: Pt. will decrease depressive symptoms, rumination, and anger Status of Goals:: Objective 1- not complete. Client has learned healthy coping skills, and he reports implementing them more consistently. However, client?s DSM-5 scores increased since admission. Client reports belief this is due to ?actually addressing issues? rather than avoiding them. Client's DSM-5 scores for anger have decreased since admission which is positive. Objective 2- Partially complete. Client has learned conflict resolution and communication skills that can help client improve his relationships. However, client and his continue to struggle with communicating at times and client can continue to benefit from working on this goal. Team Recommendations:: Client encouraged to continue working on this treatment goal to reinforce healthy coping skills and continue to combat negative thoughts that reinforce depression. Client and therapist currently working on opposite action, thought challenging, and creating a healthy daily routine. Client encouraged to establish outpatient counseling for continuity of care. Problem #2 Problem Name:: Pt. will increase mood stability by increasing emotional r egulation skills Status of Goals:: Objective 1- partially complete. Client?s DSM-5 scores for anger have decreased since admission, but his scores for anxiety remain the same. Client self-reports increased self-awareness of warning signs and triggers which has helped client reduce impulsive emotional reactions. Will continue with this goal to further decrease intensity of symptoms. Objective 2-complete. Client reports awareness of distortions that lead to rumination and he reports actively practicing thought challenging. Client states overall his mindset is more positive. Team Recommendations:: Client encouraged to continuing working on this goal as he can continue to increase self-awareness and improve emotional regulation. Client recognizes that increasing emotional regulation will improve client's interpersonal relationships. Client encouraged to establish outpatient counseling for continuity of care.
--- NOTE | 2019-09-01 14:14 | BH.MDN_ITS ---
Multi-Disciplinary Note - Note 30-min Individual Time Started:: 12:40 Date: 09/01/19 Purpose of session/treatment goals addressed:: The purpose of this session was to address current symptoms, stressors, and triggers. Another goal was review homework and progress. Other topics included emotional regulation skills, work, and relationships. Eye Contact:: Good Motor Activity:: Appropriate Appearance:: Casual Speech:: Soft Mood:: Depressed Affect:: Constricted Thoughts:: Linear, Logical, No evidence of hallucinations/delusions noted Staff Interventions:: Therapist used active listening and open-ended questions to explore client's current stressors, symptoms, and triggers. Therapist reviewed client?s homework of practicing thought challenging and explored client?s application of conflict resolution strategies. Therapist gave client the DSM-5 to assess progress and identify areas that still need improvement. Therapist and client discussed client?s return to work schedule and how he can incorporate what he learned in IOP into his daily routine. Client Response:: Client responded well to session, open to meeting with therapist and reviewing progress. Client and therapist reviewed client's homework of practicing cognitive restructuring. Client shared he was able to catch himself being negative this weekend and reframe his thinking. Client stated he had to challenge himself when having complacency thoughts. Client r eported he reminded himself that maintenance is needed to keep him balanced. Client reported he and his were at odds this weekend, but he was able to prevent himself from spiraling into a depressive cycle. Client shared he and his are practicing some of the conflict resolution strategies, but they can continue to improve. Client and therapist reviewed client's DSM-5 and client shared belief his depression score is a little higher because I'm actually addressing things rather than avoiding. Client stated belief he is coping better with his symptoms though. Client and therapist discussed client's return to work plan. Client will be returning to work in a week. Client able to identify strategies that could promote gains and mental wellbeing. Client shared he plans to change his sleep routine so he can have more quality time with his family and be more proactive after he gets off wrok. Client will also start walking to work again and making tea before he goes into work. Risks/Concerns:: Client denies any suicidal ideations, plan, or intent as of 09/01/19. Future oriented throughout session. Progress Toward Goals/Plan:: Client continues to show strides towards his treatment goals as shown by his report of generalizing coping skills and his overall reduced DSM-5 scores. However, client?s score for depression increased by one point. Client reports his mood has been a little lower because he is finally addressing his issues rather than avoiding them. Per client?s report, he and his have been doing a better job of following the conflict resolution strategies. Client?s scores for anger have decreased. Client continues to struggle with regulating his emotions consistently and can continue to improve his conflict resolution skills. Client will continue IOP tx to reduce depressive symptoms, improve interpersonal effectiveness skills, and promote the use healthy emotional regulation skills. Time Stopped:: 13:09
--- NOTE | 2019-09-02 10:02 | BH.SGPN.GN ---
Behaviors/Verbalizations/Mental Status: []Client alert and oriented, casually dressed and groomed. Eye contact good. Motor activity appropriate. Speech within normal limits. Affect congruent to topic being discussed, mood euthymic. Thoughts linear, logical, no signs of hallucinations or delusions. Client Response/Progress/Benefit: []Pt receptive of session, engaged throughout. He did well to work with the group to reflect on the quote and discussed the ways in which perspective can impact mental health and ability to make personal progress in life. Pt worked with group to identify how negative perspective can impact mental health which included: unrealistic expectations, self-sabotage, maintain depression and anxiety, overgeneralizing, increased distorted thoughts, and decreased self-confidence. Pt did well to engage in the challenge activity. Pt reported past experience can impact someone's perspective. Gave example if someone lies to him, it can change his perspective that person is no longer trust worthy. Pt appeared to benefit from increasing understanding of mental health benefits of a positive perspective and potential consequences to progress when perspective is negative. Recommended continued IOP tx to increase healthy coping skills, identify and challenge distorted thoughts, and prevent decompensation. Narrative Note: []
--- NOTE | 2019-09-02 11:00 | BH.SGPN.GN ---
Behaviors/Verbalizations/Mental Status: []Client alert and oriented, neatly dressed and groomed. Eye contact good. Motor activity appropriate. Speech within normal limits. Affect congruent, mood euthymic. Thoughts linear, logical, no signs of hallucinations or delusions. Client Response/Progress/Benefit: []Client responded well to session, attentive and engaged throughout session. Group discussed the mental health benefits of recognizing strengths which included; improved self-esteem, better coping skills, more willingness to change, and increased resilience. Group identified the barriers that have prevented them from acknowledging their strengths and successes. These barriers included; negative thoughts, minimization, invalidation, and one?s environment. Group identified strategies to overcome barriers that prevent them from seeing strengths. These strategies included; keeping track of progress, practicing self-compassion, and challenging distortions. Client able to identify personal strengths he possesses which included; wisdom, artistic ability, leadership, humor, open-mindedness, and love of learning. Appeared to benefit from recognizing personal strengths and identifying strategies to overcome barriers. Will continue IOP tx to promote mood stability, further decrease depression, and improve emotional regulation skills. Narrative Note: []
--- NOTE | 2019-09-02 11:57 | BH.COMM ---
Communication Note - Communication with Client Communication Note: Talked with client about stopping Lamictal due to rash. Client states he stopped taking Lamictal last Saturday or Saturday due to his noticing a rash on his neck, going down onto his shoulder/upper back. Client states rash was red, no open areas, did not itch. Client states he was taking 50mg Lamictal for approximately 4-5 days before rash developed and he stopped taking Lamictal. Client denies discomfort to neck/back area now, no rash noted to neck or back at this time. Client states he feels mentally the same now as he did prior to even taking Lamictal. Informed Dr. Palomares of client's rash and stopping Lamictal and client no longer having rash and feeling stable. Dr. Palomares states she will see client next week.
--- NOTE | 2019-09-04 13:14 | BH.COMM ---
Communication Note - Communication with Client Communication Note: Client called with medication concerns. IOP psychiatrist was informed and client was told to increase his Effexor. Will follow up with client next week.
== END 2019-09-05 23:59 ==
LOC: BHIOP 09:00
PROVIDERS: Referring Provider Psychiatry & Neurology Psychiatry; Visit Provider Psychiatry & Neurology Psychiatry
DX: F33.2 Major depressive disorder, recurrent severe without psychotic features (principal); F98.8 Other specified behavioral and emotional disorders with onset usually occurring in childhood and adolescence; Z79.899 Other long term (current) drug therapy
CPT/HCPCS: H0035; 90832; 90834; 90847; 90853

== ENCOUNTER 2019-09-08 09:00 | Outpatient (RCR) | payer OTHER, SELFPAY ==
--- NOTE | 2019-09-08 12:00 | BH.MDN ---
Multi-Disciplinary Note - Note 60-min Individual Time Started:: 09:30 Date: 09/08/19 Purpose of session/treatment goals addressed:: The purpose of this session was to review client's progress and review strategies that will promote mood stability and gains made in [facility]. Another goal was to discuss discharge recommendations. Eye Contact:: Good Motor Activity:: Appropriate Appearance:: Casual Speech:: Appropriate Mood:: Euthymic Affect:: Constricted Thoughts:: Linear, Logical, No evidence of hallucinations/delusions noted Staff Interventions:: Therapist used open-ended questions to explore client's thoughts on personal progress. Therapist reviewed supports, warning signs, and coping skills with client to promote gains and prevent setbacks. Therapist discussed aftercare plan with client and used strengths-perspective to empower client on the goals client has accomplished. Therapist discussed the benefits of ongoing maintenance and use of daily coping skills. Therapist gave client a quote collage for closure. Therapist helped client call and set up aftercare. Client Response:: Client responded well to session, open to meeting with therapist. Client reflected on his progress since starting [facility] and shared belief that he has made ?lots of progress? since admission. Client self-reports progress in decreased impulsive behaviors, improved ability to challenge negative thinking, better anger management, decreased depression, and better coping skills. Client shared he catches himself being negative instead of being stuck on autopilot and he is able to challenge his perspective. Client has been working on communicating more effectively with his supports and solving conflict in healthier ways. Client recognizes that regulating his emotions and stress levels in healthy ways positively impacts his family and his functioning. Client also recognizes that he can continue to work on maintenance, keeping a healthy routine, and using opposite action. Client reviewed coping skills that will promote gains and mood stability. Client's coping skills included; opposite action, thought challenging, self-reflection, taking breaks when angry, keeping a routine, putting self in other?s shoes, and finding the positives. Client returns to work on Saturday night. Client acknowledges that going back to third shift will have challenges, but he can continue to implement strategies he learned in group. Risks/Concerns:: Client denies any suicidal ideations, plan, or intent as of 09/08/19. Progress Toward Goals/Plan:: Client to discharge from [facility] this week as he has met his treatment goals. Client reports a reduction in anger, depressive, and impulsive behaviors. 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 Client continues to report use of healthy coping skills which has helped client better manage stress and conflict. Client?s symptoms have decreased in intensity and duration. Client recommended to follow up with Grisel Gaspar for outpatient counseling and [facility] medication management. Time Stopped:: 10:34
--- NOTE | 2019-09-09 09:05 | BH.SGPN.GN ---
Behaviors/Verbalizations/Mental Status: [] Eye contact is good. Motor activity is appropriate. Appearance is neat. Speech is Appropriate. Mood is anxious. Affect is congruent. Thoughts are linear and logical. No evidence of psychosis. Reviewed daily check in sheet and no reports of suicidal ideations or intent. Client Response/Progress/Benefit: [] Pt participated at times during the group discussion. Emotion for today is calm. Discussed some mental health wins over the weekend. Reports that he had some significant emotions and mood swings this past weekend. Utilized skills which included, thought challenging, grounding, talking with support, and distraction which he found to be helpful. Feels that his emotions have been evening out of the past few days. Able to see progress in utilizing skills rather than ruminating on emotions. Progress noted per pt report. Benefited from group support, encouragement, and feedback. Will continue in IOP to prevent decompensation and maintain gains. Narrative Note: []
--- NOTE | 2019-09-09 10:20 | BH.SGPN.GN ---
Behaviors/Verbalizations/Mental Status: []Client alert and oriented, casually dressed and groomed. Eye contact good. Motor activity appropriate. Speech within normal limits. Affect constricted, mood euthymic. Thoughts linear, logical, no signs of hallucinations or delusions. Client Response/Progress/Benefit: []Client responded well to session, actively contributing to discussion. Client appeared to connect with the topic of fear of failure. Client stated failure can eventually lead you to success if one is able to see failing as a learning experience. Client stated failure can actually ?help you get the help you need.? Client reported if one only focuses on past failures and mistakes it can lead to negative thinking and worsen one?s mental health. Group identified the impacts of fear of failure on mental health which included: not trying, low self-esteem, depending too much on others, avoidance, hopelessness, and increased mental health symptoms. Client agreed with peers that in order to move past failure it is important to challenge one?s perspective on failure. Client seemed to benefit from increased awareness of how fear of failure can impact mental health. Client to continue IOP tx and discharge tomorrow. Client can benefit from one more day of IOP to reinforce healthy coping skills and establish aftercare. Narrative Note: []
--- NOTE | 2019-09-09 11:21 | BH.SGPN.GN ---
Client responded well to session, active participant and willing to engage. Client worked with the group to complete the challenge activity and shared that challenging negative perspective helped to accomplish the activity. Client completed the fear of failure worksheet and reported that fear of failure is keeping him from taking on new opportunities and improving relationships. Reported barriers for overcoming fear of failure are past experiences, anger, high expectations, and absolute thinking. Client shared he has been able to learn from setbacks in the past and the positive thing past failures have taught him to be more open to asking for help. Client selected a goal to help overcome fear of failure. Client appeared to benefit from gaining awareness and setting a goal to reduce fear of failure. Client showing progress in increasing insight and improving use of healthy coping skills. Pt recommended continued IOP tx to improve healthy change behaviors, decrease depression, and increase application of skills learned. Behaviors/Verbalizations/Mental Status: [Client alert and oriented, casually dressed and appropriately groomed. Eye contact good. Motor activity appropriate. Speech within normal limits. Affect congruent, mood euthymic. Thoughts linear, logical, no signs of hallucinations or delusions.] Client Response/Progress/Benefit: [] Narrative Note: []
--- NOTE | 2019-09-09 13:31 | PCM.BH.PN ---
Progress Note Progress Note: History of Present Illness/Interim History: [] Patient is a 33-year-old male with a history of depression and ADD who is seen in follow-up at the [facility]. I last saw the patient about 3 weeks ago. He feels he has really benefited from the IOP program. He says he is learning skills that help him manage his moods and his issues in life. He feels his mood is not depressed at this point. He feels his mood is okay now. He started Lamictal and when he increased to 100 100 mg he had a rash so he stopped the medication. He increased his Effexor XR 250 mg p.o. daily a few days ago and is tolerating this well. He is planning to be discharged from the IOP program tomorrow. He denies any passive thoughts of , suicidal or homicidal ideation. He feels ready to be back in the main environment at home and work and feels he is really benefited from doing this program. Current Psychiatric Medications: [] Effexor XR 150 mg p.o. daily; Strattera 40 mg p.o. daily; Lamictal (DC'd due to rash). Mental Status Examination: [] Patient is a 33-year-old male who appears normal for stated age. He is casually dressed and groomed with good hygiene. He has no psychomotor agitation or retardation. He has good eye contact and his speech is normal rate and rhythm with no pressure. Mood is euthymic. Affect is full and normal. Thought process: Goal-directed and organized. Thought content: No evidence of suicidal or homicidal ideation. No evidence of hallucinations or delusions. Judgment is intact. Insight: Good. Impulsivity low. 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 He felt safe during the interview and if it any time he does not feel safe he will go to the emergency room or contact his psychiatric providers. The risks, options, possible side effects of his medications were discussed again with the patient and he understands and accepts these. A prescription was given for Effexor XR 150 mg p.o. daily. He will be referred to an outpatient psychiatrist and therapist.
--- NOTE | 2019-09-10 08:18 | BH.AFTERPLAN ---
Aftercare Plan - Demographics Treatment End Date:: 09/10/19 Psychiatrist:: Disha Cheney Psychiatrist Office #:: [phone] [facility] Therapist:: Virginia Arzate Therapist Phone #:: [phone] - Medications Home Medications: Home Medications Atomoxetine HCl [Strattera] 40 mg PO DAILY 30 Days #30 cap 08/19/19 Venlafaxine XR [Effexor Xr] 150 mg PO DAILY 30 Days #30 cap.er.24h 09/09/19 - Plan Details Progress/Aftercare Plan Details:: Anselmo has made great strides since starting IOP as shown by his improved mood and increased ability to cope with his mental health symptoms. When Anselmo started IOP he was experiencing depression, isolative behaviors, anger, and mood instability. Now, Anselmo has more awareness of his warning signs, unhealthy coping skills to avoid, and distorted thoughts. Anselmo has learned how to challenge negative thinking and foster a different perspective. This has helped Anselmo choose better coping skills and begin to communicate more effectively. Anselmo has worked to recognize his maintenance cycles, use self-reflection, and apply healthy coping skills daily. Anselmo has also been working on using opposite action to manage anger and depressive symptoms. Anselom now has a better understanding of how his emotions, thoughts, and behaviors impact his mental health and relationships. Anselmo plans to continue outpatient counseling and psychiatry. Anselmo plans to follow up with [facility] for outpatient psychiatry. Anselmo plans to see Grisel Gaspar at [facility] for outpatient therapy. Strategies for Success:: 1. Don't let your ego tell you that you don't need to challenge yourself! continue to do the things that got you this far! Maintenance is ortiz. 2. Maintain a routine, even when you go back to work. This means taking times to spend time with family & friends, make tea, be active, clean, and listen to music. 3. Continue to foster a positive outlook by challenging your perspective. Look for the positives and ask yourself how you can learn from a difficult moment. 4. Look at situations as opportunities to learn. 5. Practice self-reflection and maintain self-awareness. This means recognizing warning signs, communication barriers, and stress levels. 6. Open communication! Remember to to listen and then respond. Communicate breaks and avoid hurtful language. 7. Challenge your perspective and put yourself in other people's shoes. This means your , daughter, and anyone really. 8. Breaks and boundaries! 9. Continue to challenge negative thoughts and have a postivie outlook with your daughter. 10. OPPOSITE ACTION!! - Appointments Appointments/Referrals to Other Services:: 1. Follow up with [facility] 2. Follow up with Grisel Gaspar at [facility]. Appointment 10/18/19. [facility] is also an option. Tammy Carrera and Andre Bonner take [employer]. [phone]. 3. Follow up with me on September 22 at 12:30!
--- NOTE | 2019-09-10 10:13 | BH.SGPN.GN ---
Behaviors/Verbalizations/Mental Status: [Client alert and oriented, casually dressed and groomed. Eye contact good. Motor activity appropriate. Speech within normal limits. Affect congruent, mood euthymic. Thoughts linear, logical, no signs of hallucinations or delusions. ] Client Response/Progress/Benefit: [Client active participant during group AEB client contributing to discussion, providing personal examples, and making connections throughout. Client reported it is important to have a variety of social supports and indicated that ?having supports means having someone catch you when you fall, even if it means having a difficult conversation?. Client provided an example of how conversation with his and mother was hard but helped to strengthen support net. Client helped group brainstorm potential consequences of not having a support system and barriers to developing social supports, which included: feeling like a burden, lack of effective communication, anxiety, and not knowing where/how to find new supports. Group identified benefits of social support as building trust, increased motivation, less loneliness, different perspective, sense of purpose, resources, and accountability. Client reported when he feels supported, he feels ?more motivated to make healthy choices?. Client took an active role during the group activity and was providing positive encouragement and direction to peers, as well as was open to feedback from others. Appeared to benefit from gaining awareness of barriers that keep people from seeking social support as well as identifying the benefits of increasing support. Client progressing AEB client reports of improved mood and increased application of healthy skills learned in IOP. Planned to discharge from IOP tx given progress, encouraged to continue outpatient counseling to reduce, improve symptom management, maintain gains, and prevent decompensation. ] Narrative Note: []
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
--- NOTE | 2019-09-10 11:15 | BH.SGPN.GN ---
Behaviors/Verbalizations/Mental Status: []Pt alert and oriented, eye contact good, casually and neatly dressed, motor activity appropriate, speech normal rate and tone, mood euthymic, congruent affect, thoughts linear and intact, no evidence of delusions or hallucinations. Client Response/Progress/Benefit: []Client active participant AEB client contributing to discussion and listened attentively to others. Client worked with the group to make connections between barriers faced in the challenge activity and strategies for managing these barriers with utilizing social supports in daily life. Client contributed to discussion about the different types of support and benefits different types of support can provide. Client worked with the group to identify strategies for improving development of new supports and better utilization of current supports. Client identified he would like to increase self-help support to help gain another perspective and help continue his distorted thoughts. Client identified his first step is research what self-help groups are offered in his area then will choose one to attend. Client seemed to benefit from identifying a type of support he would like to improve upon and creating actionable steps to promote follow-through. Client has made significant treatment progress since starting IOP and the plan is for client to discharge from IOP today. Narrative Note: []
== END 2019-09-10 13:00 | disposition home or self-care (01) ==
LOC: BHIOP 09:00
PROVIDERS: Referring Provider Psychiatry & Neurology Psychiatry; Visit Provider Psychiatry & Neurology Psychiatry
DX: F33.2 Major depressive disorder, recurrent severe without psychotic features (principal); F98.8 Other specified behavioral and emotional disorders with onset usually occurring in childhood and adolescence
CPT/HCPCS: H0035; 90837; 90853

== ENCOUNTER 2021-05-23 09:00 | Outpatient (RCR) | payer OTHER, SELFPAY ==
--- NOTE | 2021-05-23 10:09 | BH.COMM_ITS ---
Communication Note - Communication with Client Communication Note: Met with pt to complete initial paperwork. No significant changes since pre-admission screening. Denies any suicidal ideation, denies any current plan or intent. Denies any homicidal ideation. Completed [place] [facility]icide Screening with low risk. Future-oriented.
--- NOTE | 2021-05-24 10:30 | BH.COMM ---
Communication Note - Communication with Client Communication Note: Pt was scheduled to see psychiatry today for intial eval unfortunately he did not show. Spoke with patient who reports that he was unable to get out of work on time and will not be able to meet with psychiatrist today. Reviewed case with Dr. Singh with plan to keep him in IOP as it appears he meets criteria and she will evaluate next week.
--- NOTE | 2021-05-30 09:05 | BH.SGPN.GN ---
Behaviors/Verbalizations/Mental Status: [] Eye contact is good. Motor activity is appropriate. Appearance is casual. Speech is Appropriate. Mood is depressed/irritable. Affect is congruent. Thoughts are linear and logical. No evidence of psychosis. Reviewed daily check in sheet and no reports of suicidal ideations or intent. Client Response/Progress/Benefit: [] Pt participated at times during the group discussion. Daily symptom tracker notes 2/5 for depression/anxiety and 3/5 for agitation. Emotion for today is depressed. Talked at length regarding psychosocial stressors in the past year including divorce and limited visitation with his child. Admits to struggling with managing his emotions since the divorce. Increased agitation, stress, and anxiety as well. Reports that he learned a lot last time he was in IOP and wants to start to feel better. Progress noted. Benefited from group support, encouragement, and feedback. Will continue in IOP to maintain safety, increase health coping, and stabilize mood. Narrative Note: []
--- NOTE | 2021-05-30 10:10 | BH.SGPN.GN ---
Behaviors/Verbalizations/Mental Status: []Client alert and oriented, neatly dressed and groomed. Eye contact good. Motor activity appropriate. Speech within normal limits. Affect constricted, mood euthymic. Thoughts linear, logical, no signs of hallucinations or delusions Client Response/Progress/Benefit: []Pt was an attentive participant and actively engaged throughout group discussion and activity. Did well to share the floor with fellow participants. Attentive during psychoeducation and taking notes. Reflected connecting with topic of personal pitfalls and how they can impede mental health treatment progress. Pt and peers also discussed reasons why overcoming pitfalls is so challenging. During experiential activity pt along with peers identified several pitfalls from the activity that are also associated with mental health which included: lack of awareness, poor communication, wanting to give up, and emotional reactivity. Benefited from group by increasing awareness of pitfalls which can impact mental health. Pt will continue in IOP tx to prevent decompensation, improve emotional regulation skills, and increase the use of healthy coping skills Narrative Note: []
--- NOTE | 2021-05-30 11:10 | BH.SGPN.GN ---
Behaviors/Verbalizations/Mental Status: []Client alert and oriented, neat and casually dressed and groomed. Eye contact good. Motor activity appropriate. Speech within normal limits. Affect congruent, mood dysthymic. Thoughts linear, logical, no signs of hallucinations or delusions. Client Response/Progress/Benefit: []Client receptive of session, engaged throughout AEB client actively participating in challenge activity, as well as listening and contributing to discussion. Providing insights throughout processing portions of session and reflected that lack of communication has served as a barrier in managing his own mental health symptoms. Client completed worksheet identifying personal pitfalls impacting mental health progress. Client identified the following pitfalls: distorted thoughts, lack of communication, not always being accepting of help, and not using skills regularly. Group discussed different coping skills to help manage or prevent from falling into pitfalls. Client expressed plans to work on challenging himself to more consistently reach out to healthy supports to have a ?sounding board? when needing to vent. Appeared to benefit from identifying personal pitfalls and strategies to overcome these pitfalls. Will continue IOP tx to prevent decompensation, improve consistent application of healthy coping skills, and further promote mood stability. Narrative Note: []
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
--- NOTE | 2021-05-30 13:20 | BH.MDN_ITS ---
Multi-Disciplinary Note - Note 30-min Individual Time Started:: 12:05 Date: 05/30/21 Purpose of session/treatment goals addressed:: The purpose of this session was to gather information on client's current stressors, symptoms, and treatment goals. Another goal was to build rapport. Eye Contact:: Good Motor Activity:: Appropriate Appearance:: Neat Speech:: Appropriate Mood:: Euthymic Affect:: Constricted Thoughts:: Linear, Logical, No evidence of hallucinations/delusions noted Staff Interventions:: rapport building, treatment planning Client Response:: Client responded well to session, open to meeting with therapist. Client reports since he discharged from IOP tx he has experienced numerous stressors. Client reports a few days after discharging from IOP tx he was arrested after a verbal altercation with his now ex-. Client stated he had a no contact order and did not get to see his daughter for 10 months. Client's divorce is now finalized, and client is able to see his daughter, but client stated he and his ex- cannot get along. Client shared he has been struggling with his mental health for a while but admits that he has been putting off getting help. Client reports he still wants to work on reducing a nger, but client feels that since getting his anger has decreased. Client reports he feels less depressed now, but prior to scheduling an intake he was very depressed. Client stated he does not love his job, but he cannot afford to leave. Client has been playing in different bands and client reports this has been a significant positive influence in his life. Risks/Concerns:: Client denies any suicidal or homicidal ideations, plan, or intent as of 05/30/21. Progress Toward Goals/Plan:: Client?s second day of IOP tx as client only could attend once last week. Client previously attended IOP tx and reports it was helpful. Client?s biggest goal for IOP is to improve his conflict resolution and communication skills with his ex- so they can be better co-parents. Client also wants to better manage his anger and depression. Client currently endorses a depressed mood, decreased appetite, decreased motivation, irritability, and ?knee-jerk reactions? of walking out of work. Client will continue IOP tx to prevent decompensation, improve emotional regulation skills, and improve interpersonal relationship skills. Time Stopped:: 12:25
--- NOTE | 2021-05-30 13:20 | BH.MTP ---
Master Treatment Plan - Patient Information Program Physician:: Dr. Disha Cheney Primary Therapist:: Virginia JENSEN - Psychiatric Diagnoses Psychiatric Diagnoses:: Major depressive disorder recurrent severe without psychosis F33.2; rule out ADHD; Cluster B traits Diagnosis Code(s):: F 33.2 - Estimated LOS Estimated LOS (in weeks):: 6 Problem/Goal #1 - Problem/Goal #1 Stated Goal:: Client will decrease depressive symptoms, passive thoughts of , and lack of motivation due to major depression disorder. Description of Barriers: Due to client's work schedule, his participation in [facility] tx may be limited. Client admits to putting off getting mental health help for over a year and is currently unsure if he wants to take medications. Client does not have time off of work. Client is not currently connecting with any outpatient mental health services. Functional Impact: Client is a 35-year-old male who was self-referred to [facility] due to worsening depression and anxiety over the past year. Client has a history of depression and issues with anger, but client believes his anger has resolved since getting a divorce. Client went through a divorce over the past year and during that time he did not get to see his daughter. Client was supposed to follow up with counseling for his anger, depression, and anxiety, but he never followed up with counseling. Client currently endorses a depressed mood, loss of appetite, decreased motivation, irritability, and some isolation. Client also reports noticing knee-jerk reaction to walk off at work when he gets irritated with something. 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 Client also reports four panic attacks in the last two months. Client denies any suicidal ideations or homicidal ideations, but client does admit to having passive thoughts of . Goal Relevant Strengths/Supports: Client has got back into playing music which has been a healthy outlet for client. Client is employed and living with a friend who is a positive support to client. - Objectives Objective #1 Stated Objective: Client will learn 2-3 techniques to better manage his interpersonal relationships and depression. Interventions: Through group and individual sessions, client will learn strategies to improve communication, resolve conflict, and increase emotional regulation to better manage interpersonal relationships and depressive symptoms. Therapist will also teach client about self-forgiveness, boundaries, and radical acceptance to help client heal from previous relationships. Discharge Criteria: Client will have accomplished this goal when he can identify and report using at least 2 techniques to better manage interpersonal relationships and depression. Target Date: 07/04/21 Review Date: 06/20/21 Status: open Problem/Goal #2 - Problem/Goal #2 Stated Goal:: Client will increase mood stability by increasing emotional regulation skills to reduce anxiety and anger. Description of Barriers: Due to client's work schedule, his participation in [facility] tx may be limited. Client admits to putting off getting mental health help for over a year and is currently unsure if he wants to take medications. Client does not have time off of work. Client is not currently connecting with any outpatient mental health services. Functional Impact: Client is a 35-year-old male who was self-referred to [facility] due to worsening depression and anxiety over the past year. Client has a history of depression and issues with anger, but client believes his anger has resolved since getting a divorce. Client went through a divorce over the past year and during that time he did not get to see his daughter. Client was supposed to follow up with counseling for his anger, depression, and anxiety, but he never followed up with counseling. Client currently endorses a depressed mood, loss of appetite, decreased motivation, irritability, and some isolation. Client also reports noticing knee-jerk reaction to walk off at work when he gets irritated with something. 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 Client also reports four panic attacks in the last two months. Client denies any suicidal ideations or homicidal ideations, but client does admit to having passive thoughts of . Goal Relevant Strengths/Supports: Client has got back into playing music which has been a healthy outlet for client. Client is employed and living with a friend who is a positive support to client. - Objectives Objective #1 Stated Objective: Client will identify 2-3 anxiety and anger triggers and 2 calming coping skills to use to reduce symptoms as shown by decreased DSM-5 cross-cutting scores for anxiety and anger. Interventions: Therapist will help client increase awareness of anxiety and anger triggers. Therapist will educate client on ways anxiety and anger impact overall health and can manifest itself. Therapist will teach client various strategies to promote emotional regulation. Therapist will assist client in identifying warning signs and teach client techniques to reduce, remove, or accept stressors to reduce anxiety. Therapist will encourage daily practice of coping skills to promote self-regulation. Discharge Criteria: Client will have accomplished this goal when can report at least 2 triggers for anxiety and anger and state using 2 strategies to manage symptoms. Additionally, client will have accomplished this goal when his DSM-5 scores show a reduction for anxiety and anger. Target Date: 07/04/21 Review Date: 06/20/21 Status: open
--- NOTE | 2021-05-31 12:40 | BH.COMM ---
Communication Note - Communication with Client Communication Note: Pt missed his initial appointment with psychiatry last week and was scheduled to have his initial psychiatric evaluation today, unfortunately pt did not show. Spoke with pt and reports that he was unable to get out of work. Second week client missed appointment with psychiatrist. Reviewed case with tx team and will discharge outpatient therapy and psychiatry options that may better fit pt?s work schedule.
--- NOTE | 2021-06-06 09:00 | BH.SGPN.GN ---
Behaviors/Verbalizations/Mental Status: []Client alert and oriented, neatly dressed and groomed. Eye contact good. Motor activity appropriate. Speech within normal limits. Affect constricted, mood euthymic. Thoughts linear, logical, no signs of hallucinations or delusions. Reviewed client?s symptom tracker, no risk for suicidal ideation, plan, or intent as of 06/06/21 Client Response/Progress/Benefit: []Client responded well to session, attentive and contributing to discussion. Client reports feeling neutral this morning. Client reports he has been using coping skills pretty frequently, especially when irritable. Client shared that he is currently struggling with deciding on what he wants to do for a career. Client stated he feels like his current job is toxic and I've changed my perspective, but it's still bad, so maybe it's not me. Client is looking into different options and he continues to use music as an outlet to help release emotions. Appeared to benefit from conversation on possible job options. Progress limited as client's attendance has been variable. Will continue IOP tx to increase emotional regulation skills, increase distress tolerance, and improve daily functioning. Narrative Note: []
--- NOTE | 2021-06-06 10:10 | BH.SGPN.GN ---
Behaviors/Verbalizations/Mental Status: [] Eye contact is good. Motor activity is appropriate. Appearance is casual. Speech is Appropriate. Mood is depressed/irritable. Affect is congruent. Thoughts are linear and logical. No evidence of psychosis. Client Response/Progress/Benefit: [] Pt was an active participant in group discussion. Attentive during psychoeducation on communication styles (Passive, Passive-Aggressive, Aggressive, and Assertive) and benefits/disadvantages to each style. Along with peers pt participated in providing insight into the benefits to effective communication on mental health which included; helps us get needs met, resolves problems, improves relationships, increases clarity, clears ups expectations, decreases stress, and increases productivity. Pt along with peers able to identify ways that communication can be misinterpreted through tone, texting, body language and assumptions. Pt identified his most frequently used communication style and passive. Benefited from increased awareness of different communication styles and the importance of communicating effectively to improve mental wellness. Will continue in IOP to prevent decompensation, stabilize mood, and increase healthy coping. Narrative Note: []
--- NOTE | 2021-06-06 11:15 | BH.SGPN.GN ---
Behaviors/Verbalizations/Mental Status: []Client alert and oriented, casually dressed and appropriately groomed. Eye contact good. Motor activity appropriate. Speech WNL. Affect congruent, mood euthymic. Thoughts linear, logical, no signs of hallucinations or delusions. Client Response/Progress/Benefit: []Client responded well to session AEB listening attentively to others, taking notes, and providing input during group discussion. Client contributed ideas and volunteered during the challenge activity, doing well to identify how skills used in group may relate back to skills they can apply when communicating in own daily life. Identified the importance of using relatable language and examples when communicating something new or unknown to someone. Attentive during psychoeducation on interpersonal DBT skill KHARI and client selected a communication skill to practice. Client selected wanting to practice using more expressive language and communicating early rather than waiting until his emotions are less regulated to communicate needs. Client seemed to benefit from increasing awareness of healthy strategies to improve communication. Will continue IOP tx to maintain gains, increase healthy coping and mood stability, as well as prevent decompensation. Narrative Note: []
--- NOTE | 2021-06-06 13:38 | BH.MDN_ITS ---
Multi-Disciplinary Note - Note 30-min Individual Time Started:: 12:05 Date: 06/06/21 Purpose of session/treatment goals addressed:: To address goal #2 of client's tx plan. Another goal was to process current emotions and thoughts on work. Eye Contact:: Good Motor Activity:: Appropriate Appearance:: Neat Speech:: Appropriate Mood:: Euthymic Affect:: Constricted Thoughts:: Linear, Logical, No evidence of hallucinations/delusions noted Staff Interventions:: psychoeducation on: - emotional urges, mindfulness skills, goal setting, taught coping skills - DBT emotional regulation skills Client Response:: Client responded well to session, open to meeting with therapist. Client reports last week was really rough at work and shared they have been understaffed at work. Client shared he had several outbursts at work and he also isolated after the work day. Client stated one of those days we got to his daughter which helped client's mood. Client receptive to learning about the different emotional regulation skills including: halting unhealthy behaviors, redirecting, self-soothing, and organizing plans. Client shared he has been doing well to use self-soothing through earthing and music. Client wants to strengthen his ability to halt unhealthy behaviors, especially knee- jerk reactions. Discussed what client can do to prevent outbursts such as paying attention to triggers, stress levels, and using calming music or humor at break times. Also discussed making amends after an anger outburst to reduce shame and prevent an ongoing anger maintenance cycle. Client reports belief that his anger will reduce significantly if he finds a different job. Client has reservations about leaving his current job, but able to see pros of leaving as well. Client stated he was proud of himself for communicating calmly while setting a boundary with his ex- over the weekend. Reflected on the importance of boundary setting with people as well as with self. Client's homework is to listen to calming music at work on breaks and to use opposite action after the work day rather than isolate. Risks/Concerns:: Client denies any suicidal ideations or homicidal ideations, plan, or intent as of 06/06/21. Progress Toward Goals/Plan:: Client's attendance has been variable due to work conflicts. Client reports he has been paying attention to his moods and practicing healthier communication skills with his ex-. Client's current stressor is not enjoying his job and ongoing mood instability at work. Client also reports feeling physically and mentally drained after work which leads to client isolating. Client reports his work has finally given him two days off a week to attend therapy. Client will continue IOP tx to promote emotional regulation skills, increase impulse control, and improve overall functioning. Time Stopped:: 12:40
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
[2021-06-07 11:28] VITALS: BP 158/99; PULSE 65
== END 2021-06-06 23:59 ==
LOC: BHIOP 09:00
PROVIDERS: Referring Provider Psychiatry & Neurology Psychiatry; Visit Provider Psychiatry & Neurology Psychiatry
DX: F33.2 Major depressive disorder, recurrent severe without psychotic features (principal)
CPT/HCPCS: S9480; 90832; 90853

== ENCOUNTER 2021-06-07 08:00 | Outpatient (RCR) | payer OTHER, SELFPAY ==
--- NOTE | 2021-06-07 09:00 | BH.SGPN.GN ---
Behaviors/Verbalizations/Mental Status: []Eye contact is good. Motor activity is appropriate. Appearance is casual. Speech is Appropriate. Mood is euthymic. Affect is constricted. Thoughts are linear and logical. No evidence of psychosis. Reviewed daily check in sheet and no reports of suicidal ideations or intent. Client Response/Progress/Benefit: []Pt responded well to session AEB pt listening attentively to other and sharing thoughts with group. Pt indicates a 0/5 for depression and a 2/5 for anxiety on daily symptom tracker. Indicated decrease in agitation. Pt reported mental health win as writing down what he needs to get done each week then crossing off his accomplishments. Pt stated it has been helpful to see how much he gets done in a day. Pt stated stressor is having to return to work tomorrow. Pt reported work is stressful because he is constantly working since they are short staffed and he doesn't like that he won't know his days off until the week of work. Stated unpredictability makes it hard to plan anything. Pt stated he has been looking for other jobs because recognizes this position is not helping his mental health. Pt to continue IOP to increase healthy coping, challenge negative thoughts and prevent decompensation. Narrative Note: []
--- NOTE | 2021-06-07 10:10 | BH.SGPN.GN ---
Behaviors/Verbalizations/Mental Status: [] Eye contact is good. Motor activity is appropriate. Appearance is neat. Speech is Appropriate. Mood is depressed. Affect is flat. Thoughts are linear and logical. No evidence of psychosis. Client Response/Progress/Benefit: [] Pt was an active participant in group discussion and activity. Attentive during psychoeducation on coping skills. Pt along with peers worked together to identify unhealthy coping skills such as; avoidance, sleep, substances, isolation, shopping, self-sabotage, not taking prescribed medications, and self-harm. Group was able to identify why people use unhealthy coping skills such as; easy, comfortable, work in the short-term, perceive them as quick fix, and its harder to use healthy coping skills. Pt was able to make connection between the activity (tower building) and the importance of having a strong base/foundation of both internal and external coping skills. Benefited from increased understanding of unhealthy coping skills and the need for developing healthy interna and external coping skills. Pt will continue in IOP to maintain gains and prevent decompensation. Narrative Note: []
--- NOTE | 2021-06-07 11:10 | BH.SGPN.GN ---
Behaviors/Verbalizations/Mental Status: []Client alert and oriented, neatly dressed and groomed. Eye contact good. Motor activity appropriate. Speech within normal limits. Affect constricted, mood euthymic. Thoughts linear, logical, no signs of hallucinations or delusions. Client Response/Progress/Benefit: []Client responded well to session, taking notes and contributing throughout. Group discussed the different categories of coping skills which included distraction, emotional release, grounding, self-love, and thought challenging. Client participated in creating a coping skills ?menu? from the five categories of coping skills. Client's coping skill menu included: journaling, progressive muscle relaxation, body scanning, playing music, and catching distorted thought patterns. Appeared to benefit from increasing repertoire of healthy coping skills. Will continue tx to reduce irritability, increase emotional regulation skills, and improve interpersonal effectiveness skills. Narrative Note: []
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
--- NOTE | 2021-06-07 11:39 | BH.PSY.EVA_ITS ---
Psychiatric Evaluation Initial Evaluation Initial Evaluation: This is part 2 of the psych evaluation because dragon was malfunctioning and this is the only way it would continue at legal history. Legal history: He has a courtesy car driver's license and no DUIs or half-way. Review of systems: Negative except as noted in present illness. Vital signs: Reviewed in the inpatient record. Mental status examination: The patient is a 35-year-old male who is seen wearing a mask and appears normal for stated age. He is casually dressed and groomed with good hygiene and has no psychomotor agitation or retardation. Eye contact is good and speech is normal rate and rhythm and fluent with no pressure. Mood is depressed. Affect is full and normal. Thought process: Is goal-directed and organized. Thought content: There is evidence of passive thoughts of . There is no evidence of passive suicidal ideation, active suicidal ideation, plan for suicide, hallucinations, delusions or symptoms of garret. Reality testing is intact. Intelligence is above average. Judgment is intact. Insight is good. Impulsivity is low to moderate. Diagnosis: 1. Major depressive disorder, recurrent, moderate 2. Attention deficit disorder 3. Anxiety disorder, NOS 4. THC use disorder 5. Primary support, financial and work issues Plan: The patient will start the IOP program at [facility] as the structure, support, education and group therapy will hopefully prevent worsening of the patient's symptoms which might require hospital admission. He felt safe during the interview and if it anytime he does not feel safe he will let us know or go to the emergency room. The risks, options, possible compli cations and side effects of the medications were discussed with the patient and he understands and accepts these. He admits that he tends to get side effects on medications but he does agree to try Lexapro 5 mg p.o. daily after a long discussion of options. I will see the patient in 1 week and if he is doing okay on the Lexapro we will add Strattera for his attention deficit disorder. In addition Lexapro may need to be increased. A prescription was sent in for Lexapro 5 mg p.o. daily, #30, 0 refills. He will continue to follow-up with outpatient psychiatric and medical providers.
--- NOTE | 2021-06-07 11:44 | BH.DR.ITP ---
Initial Treatment Plan Patient Information Visit Information: ADMISSION DATE: EXPECTED LOS: 4-6 weeks Problems/Symptoms Problem #1:: Depression Symptom:: Sadness, irritability, decreased appetite, low energy, passive thoughts of , history of passive suicidal ideation Problem #2:: Anxiety Symptom:: Rumination, fear of the unknown, history of panic attacks, avoidance
--- NOTE | 2021-06-15 11:12 | BH.SGPN.GN ---
Behaviors/Verbalizations/Mental Status: []Client alert and oriented, casually dressed and appropriately groomed. Eye contact fair. Motor activity appropriate. Speech within normal limits. Affect constricted, mood dysthymic. Thoughts linear, logical, no signs of hallucinations or delusions. Client Response/Progress/Benefit: []Client was an engaged participant AEB providing input throughout discussion and listened attentively to others. Connected with group topic of perspective and the impacts of one?s perspective on mental health. Client worked with the group to identify impact of a negative perspective which included: all or nothing thinking, increased negative self-talk, and hurts relationships. Client reported if don't take care of self-care it makes it harder to have a positive perspective. Gave example when he doesn't get enough sleep his perspective tends to be focused on the negatives. Client appeared to benefit from increasing understanding of mental health benefits of a positive perspective and potential consequences to progress when perspective is negative. Progress impacted by client's inconsistent attendance. Client is to continue IOP to increase consistent use of healthy coping, challenge distorted thoughts and prevent decompensation. Narrative Note: []
--- NOTE | 2021-06-15 11:16 | BH.SGPN.GN ---
Behaviors/Verbalizations/Mental Status: []Client alert and oriented, casually dressed and groomed. Eye contact good. Motor activity appropriate. Speech within normal limits. Affect congruent, mood euthymic. Thoughts linear, logical, no signs of hallucinations or delusions. Client Response/Progress/Benefit: Pt did well to remain attentive and actively engaged throughout session, providing personal examples throughout. Reported connecting with discussion reviewing benefits of recognizing personal strengths and importance of taking a strengths-based approach in addressing stressors and managing mental health symptoms. Shared he has struggled with consistently giving himself credit for where he is making progress or what he is good at. Completed strengths exploration worksheet and identified personal strengths to include: creativity, artistic ability, humor, and optimism. Pt shared that working to recognize these personal strengths more consistently will help improve his ability to better regulate his emotions and practice patience in stressful situations. Shared wanting to focus on fostering personal strength of gratitude by actively verbalizing to others the things he is grateful for. Noted this would help him to feel more positive and connect better with others. Benefited from identifying personal strengths and strategies for enhancing use of identified strengths. Pt to continue IOP tx to further improve mood management, improve internal coping skills and use of supports, as well as continue to promote healthy change behaviors.[] Narrative Note: []
--- NOTE | 2021-06-21 10:15 | BH.SGPN.GN ---
Behaviors/Verbalizations/Mental Status: []Client alert and oriented, neatly dressed and groomed. Eye contact good. Motor activity appropriate. Speech within normal limits. Affect incongruent to mood-constricted, mood euthymic. Thoughts linear, logical, no signs of hallucinations or delusions. Client Response/Progress/Benefit: []Pt was an engaged though mostly passive participant in group discussion, providing some input and was attentive during psychoeducation. Participated in short activity about automatic thoughts and shared that negative thoughts can turn into core beliefs. Group was primarily educational; therapist introduced and gave examples of the 10 cognitive distortions. Benefited from education and increased awareness of cognitive distortions and role that they play in negative thoughts and emotions. Pt reported connecting with emotional reasoning and mental filter. Shared distortions such as emotional reasoning can make anxiety worse. Will continue IOP tx to increase emotional regulation skills to help reduce anger and improve overall functioning Narrative Note: []
--- NOTE | 2021-06-21 11:18 | BH.SGPN.GN ---
Behaviors/Verbalizations/Mental Status: []Eye contact is good. Motor activity is appropriate. Appearance is casual. Speech is Appropriate. Mood is calm, euthymic. Affect is congruent. Thoughts are linear and logical. No evidence of psychosis. Client Response/Progress/Benefit: []Pt was an active participant, taking notes and providing input throughout group discussion and activity. Attentive during psychoeducation on cognitive distortions not discussed in previous group and indicated connecting with distortions of catastrophizing and disqualifying the positives. Pt was an active participant in Cognitive Distortions Jeopardy, providing input and suggestions to small group, as well as working with peers to identify correct answers throughout. Engaged in game as patient utilized notes from psychoeducation on cognitive distortions as well, as conversed with peers to answer questions. Able to practice re-framing cognitive distortions with peers to obtain points for the game. Expressed connecting with the importance of regularly reviewing materials to better understand the different distortions, as pt expressed confusing minimization and disqualifying the positives. Experiential activity was beneficial as it provided a way for patient to review notes and handouts during psychoeducation to answer questions for the game. Will continue in [facility] tx to further improve mood stability and reduce irritability, improve stress management skills, and more proactively make healthy decisions for improving mental health management. Narrative Note: []
--- NOTE | 2021-06-21 11:36 | BH.MDN_ITS ---
Multi-Disciplinary Note - Note 30-min Individual Time Started:: 09:20 Date: 06/21/21 Purpose of session/treatment goals addressed:: To review client's progress and DMS-5 scores, address barriers, and identify goals for the week. Eye Contact:: Good Motor Activity:: Appropriate Appearance:: Neat Speech:: Appropriate Mood:: Euthymic Affect:: Congruent Thoughts:: Linear, Logical, No evidence of hallucinations/delusions noted Staff Interventions:: thought challenging, motivational interviewing, reviewed DSM-5, goal setting Client Response:: Client responded well to session, open to meeting with therapist. Client stated his depression and anger have significantly improved. Client reports he has been listening to calming music at work which has been helpful. Client shared he has also been socializing more and feeling more mo tivated. Client stated work is still a significant source of stress and anger trigger. Client has been applying for other jobs, but client states he has not found anything that great yet. After discussing further, client admitted that throughout his life he has waited for something to happen to me in order to change, rather than taking steps to change for himself. Client shared it's just always worked out for me, so why change that. Receptive to motivational interviewing and discussion of unnecessary suffering. Client admits that he has put himself through unnecessary suffering many times in his life due to waiting for external things to solve his immediate issues. Client receptive to setting a timeline for himself to leave his job, even if he has not found the perfect new job. Client was also encouraged to practice self-reflection throughout the week to help him gain awareness of when he is experiencing unnecessary suffering. Risks/Concerns:: Client denies any suicidal ideations or homicidal ideations. Progress Toward Goals/Plan:: Client's DSM-5 scores for depression have decreased by 60% since admission and anger has decreased by 33%. Client reports his anger and frustration is still present at work, but client reports belief he is coping with it much better. Client was prescribed Lexapro two weeks ago, but stated he just filled the medication yesterday. Client continues to struggle with the decision to leave or stay at his job. Client was encouraged to increase attendance over the next two weeks. Will continue IOP tx to promote gains, establish aftercare, and increase emotional regulation skills. Time Stopped:: 09:55
--- NOTE | 2021-06-21 11:36 | BH.TPR ---
Treatment Plan Review Date of Admission:: 05/23/21 Date of Treatment Plan Review:: 06/20/21 Admitting Diagnoses:: Major depressive disorder recurrent severe without psychosis F33.2; rule out ADHD; Cluster B traits Current Diagnoses:: Major depressive disorder, recurrent, moderate; Attention deficit disorder; Anxiety disorder, NOS; THC use disorder Patient's Response to Treatment:: Pt responding well to treatment AEB pt's self-report of improved mood, reduced DSM-5 symptoms, and improved functioning. However, Pt's attendance has been variable and over the past four weeks, pt has only been able to attend once a week due to work. [facility] staff has expressed this concern, but pt does not currently have an outpatient provider. Per pt's report, he has been using coping skills consistently such as listening to calming music and setting boundaries. Status of Current Problems and Symptoms: Pt's biggest stressor continues to be work-related. Pt has applied for other jobs and wants to make a change soon, but pt acknowledges he waits for external triggers to promote change rather than taking initiative. Pt's reports improved mood and functioning, but he continues to report ongoing irritability, mostly at work. Pt's depressive symptoms are mild per his report. Problem #1 Problem Name:: Depressive symptoms, lack of motivation, and passive thoughts of Status of Goals:: Objective 1-complete with ongoing work encouraged. Pt?s DSM-5 scores for depression decreased by 60%. Pt reports his motivation has increased, he is more social, and he denies any passive thoughts of . However, pt reports ongoing use of marijuana which could impact pt?s depressive symptoms in the future. Team Recommendations:: Treatment tx recommends pt to increase attendance to two days a week for the next two weeks as well as take medications as prescribed. Pt will also need an outpatient provider for continuity of care. Problem #2 Problem Name:: Increase emotional regulation skills and reduce anger. Status of Goals:: Objective 1- in progress. Pt?s DSM-5 scores for anger have decreased by 33% since admission. Pt reports using calming/happy music at work to manage anger at work. However, pt recognizes that his apathy and frustration with work will likely not decrease unless he switches jobs. Pt has been encouraged to apply for different jobs and he reports he has. Team Recommendations:: Treatment tx recommends that pt continue working on increasing his internal locus of control and taking action to improve his situation at work.
--- NOTE | 2021-06-21 12:22 | PCM.BH.PN ---
Progress Note Progress Note: History of Present Illness/Interim History: [] Patient is a 35-year-old male who is seen in follow-up at the [facility] behavioral health IOP program. I last saw the patient 2 weeks ago and at that time Lexapro was prescribed for the patient. 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 He feels that he has improved however and that the IOP program is helping him learn good tools to deal with the stresses in his life. Per staff the patient has been only coming 1 day a week but he feels that this 1 day a week is helping him. Work remains very stressful and he does want to change jobs soon. He is sleeping 6 to 7 hours a night. His mood is better and he feels he is not really depressed anymore. He has not had any panic attacks since I saw him last 2 weeks ago. He is using some skills learned here to abort these panic attacks. He denies any passive thoughts of and denies any suicidal ideation now. He also denies homicidal ideation, hallucinations, delusions. Current Psychiatric Medications: [] No medications currently but took his first dose of Lexapro today though it was prescribed 2 weeks ago. Mental Status Examination: [] Patient is a male who appears normal for stated age and is seen wearing a mask due to the pandemic. He is casually dressed and groomed with good hygiene and has no psychomotor agitation or retardation. Eye contact is good and speech is normal rate and rhythm and fluent with no pressure. Mood is euthymic. Affect is full and normal. Thought process is goal-directed and organized. Thought content: There is no evidence of passive thoughts of , suicidal ideation, homicidal ideation, hallucinations or delusions. Judgment is intact. Insight is fair to good. Impulsivity is low to moderate. Diagnoses: [] 1. Major depressive disorder, recurrent, moderate 2. Attention deficit disorder 3. Anxiety disorder, NOS 4. THC use disorder 5. Primary support, financial and work issues Plan: [] The patient will continue the IOP program at [facility] as the structure, support, education and group therapy will hopefully prevent worsening of the patient's symptoms. He felt safe during the interview and if it anytime he does not feel safe he will let us know or go to the emergency room. The risks, options, possible complications and side effects of medications were again discussed with the patient and he understands and accepts these. He does not like to take medications but he agrees to start the Lexapro as he took the first dose today. I will see him in several weeks to see how he is doing on the Lexapro and we may add Strattera for attention deficit disorder at that time if needed. He will continue to follow-up with outpatient psychiatric and medical providers.
--- NOTE | 2021-06-27 09:00 | BH.SGPN.GN ---
Behaviors/Verbalizations/Mental Status: []Eye contact is good. Motor activity is appropriate. Appearance is casual. Speech is Appropriate. Mood is euthymic. Affect is congruent. Thoughts are linear and logical. No evidence of psychosis. Reviewed daily check in sheet and no reports of suicidal ideations or intent. Client Response/Progress/Benefit: []Pt receptive of group and contributing supportive feedback throughout. Identified emotion for the day as ?relieved? and attributes this to making the decision to begin looking for another job. Client describes this as a ?win? as he has known his current job is unhealthy for his mental health but has struggled to take the initiative to leave. Reports recognizing that his displeasure at work was beginning to impact his ability to enjoy activities outside of the workplace which is what encouraged him to begin applying elsewhere. Additional win noted as already hearing back from several places he applied to. Denies any stressors on this date. Client at times struggles with minimizing when things are going well. Recommended continued IOP tx to further improve emotion regulation and anger management, as well as promote healthy boundaries and communication of client mental health needs. Narrative Note: []
--- NOTE | 2021-06-27 10:08 | BH.SGPN.GN ---
Behaviors/Verbalizations/Mental Status: []Client alert and oriented, casually dressed and groomed. Eye contact good. Motor activity appropriate. Speech within normal limits. Affect congruent, mood euthymic. Thoughts linear, logical, no signs of hallucinations or delusions. Client Response/Progress/Benefit: []Client engaged during session AEB client contributing thoughts throughout discussion and completing worksheet. Connected with discussion on crisis and how coping with external crises by using unhealthy coping skills could result in a personal crisis. Group reflected on the importance of having awareness of personal warning signs to prevent reaching crisis point. Group identified potential warning signs for crisis and client completed the personal warning signs worksheet. Client identified personal crisis warning signs to include: apathy, unusual drop in functioning (especially at work), and feeling disconnected from others. Client benefited by increasing awareness of what leads to crisis and personal warning signs. Pt will continue IOP tx to reinforce healthy coping skills and establish aftercare. Narrative Note: []
--- NOTE | 2021-06-27 11:15 | BH.SGPN.GN ---
Behaviors/Verbalizations/Mental Status: []Client alert and oriented, casually dressed and groomed. Eye contact fair. Motor activity appropriate. Speech within normal limits. Affect congruent. Mood euthymic. Thoughts linear, logical, no signs of hallucinations or delusions. Client Response/Progress/Benefit: []Client responded well to session as evidenced by client listening attentively to others and providing strategies during discussion. Client identified personal warning signs for crisis and gained further awareness of earliest warning signs. Client created a crisis action plan to help client better manage warning signs for crisis. Client?s action plan for unusual drop in functioning included: find a smaller task to accomplish, opposite action, and thought challenging. Client appeared to benefit from creating a crisis action plan and increasing self-awareness. Client to continue IOP tx to continue use of healthy coping, challenge negative thought patterns and prevent decompensation.
--- NOTE | 2021-06-28 09:05 | BH.SGPN.GN ---
Behaviors/Verbalizations/Mental Status: []Client alert and oriented, neatly dressed and groomed. Eye contact good. Motor activity appropriate. Speech within normal limits. Affect constricted, mood euthymic. Thoughts linear, logical, no signs of hallucinations or delusions. Reviewed client?s symptom tracker, no risk for suicidal ideation, plan, or intent as of 06/28/21 Client Response/Progress/Benefit: C[]Client responded well to session, attentive and engaged. Client reports feeling accomplished this morning sharing he had a boring but productive day yesterday. Client has been applying for different jobs and he has heard back from several places. Client is feeling more ready and confident to make a job change. Client shared he might quit his job this week, but is not sure yet. Client self-reports on the daily symptom tracker that his mood and functioning have generally been better. Client denies any stressors this morning. Client's last week in IOP will be next week and client is trying to schedule outpatient mental health services. Appeared to benefit from reflecting on personal growth since admission. Will continue IOP tx to reinforce healthy coping skills and establish aftercare. Narrative Note: []
--- NOTE | 2021-06-28 10:15 | BH.SGPN.GN ---
Behaviors/Verbalizations/Mental Status: [] Eye contact is good. Motor activity is appropriate. Appearance is casual. Speech is Appropriate. Mood is anxious. Affect is congruent. Thoughts are linear and logical. No evidence of psychosis. Client Response/Progress/Benefit: [] Pt was an active participant in group discussion and activity. Attentive during psychoeducation on fixed mindset and fixed thinking. Participated with group in experiential activity which initially seemed impossible however worked with peers to come up alternative solutions while practicing the skills at looking at obstacle with growth mindset. 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 Benefited from increased awareness of fixed thinking. Will continue in IOP to prevent decompensation, increase healthy coping, and stabilize mood. Narrative Note: []
--- NOTE | 2021-06-28 11:55 | BH.MDN_ITS ---
Multi-Disciplinary Note - Note 30-min Individual Time Started:: 11:40 Date: 06/28/21 Purpose of session/treatment goals addressed:: To establish aftercare for discharge next week and to review healthy coping skills. Eye Contact:: Good Motor Activity:: Appropriate Appearance:: Neat Speech:: Appropriate Mood:: Euthymic Affect:: Congruent Thoughts:: Linear, Logical, No evidence of hallucinations/delusions noted Staff Interventions:: discharge planning, strengths perspective, other - DTB skills- nonjudgmental stance Client Response:: Client responded well to session, open to meeting with therapist. Client reports he is feeling in a better place this week because he is actively applying for jobs and has been getting calls back. Client shared he would like to quit his job this week, but he does not want to lose insurance. Cris castellon did set a boundary with work yesterday as they wanted client to come in even though he had IOP. Client stated he also applied for a job that is much different than what client has done in the past and he is excited rather than anxious about change. Client wants to be able to leave his current job on a good note and not to burn any bridges. Client stated he has been having vengeful thoughts such as I should walk out and see how they like it. Client denies that these thoughts ever turn into homicidal thoughts and reports he would never harm anyone at work, but client is worried that these thoughts are not healthy. Processed client's concern using the nonjudgmental stance and discussed how thoughts are thoughts, not necessarily indicated of our character. Normalized that most people have thoughts like that every once in a while, especially under high stress or burnout. Reinforced it is what we do with the thoughts that make them healthy or unhealthy. Also discussed that if these vengeful thoughts continue after client leaves his current job, client will want to further explore this. Discussed options for aftercare and client was given options for psychiatry and counseling. Risks/Concerns:: Client denies any suicidal or homicidal ideations. Progress Toward Goals/Plan:: Client continues to make progress towards IOP goals as client reports increased motivation, healthier boundaries, and increased ability to regulate anger. Client plans to leave his current job which client reports belief will further improve mood and functioning. Client will call [facility] or [facility] to set up outpatient counseling and psychiatry. Client will continue IOP next week to establish aftercare plan and reinforce healthy coping skills. Time Stopped:: 12:00
--- NOTE | 2021-07-04 10:15 | BH.SGPN.GN ---
Behaviors/Verbalizations/Mental Status: []Client alert and oriented, casually dressed and groomed. Eye contact good. Motor activity appropriate. Speech within normal limits. Affect congruent, mood euthymic. Thoughts linear, logical, no signs of hallucinations or delusions. Client Response/Progress/Benefit: []Client receptive to session, participating throughout. Provided input as the group brainstormed the positive and negative aspects of stress on physical and mental health. Group did well to identify the benefits of stress as well as the impact of distress on performance and mental health. Client identified top stressors such as work, family, and time management. Client reports when the stress overflows client will have anger outbursts and unwilling to listen to others. Client seemed to benefit from increased awareness of current stressors and impact stress has on mental health. Recommended to continue IOP tx to continue use of healthy coping, challenge distorted thoughts and prevent decompensation.
--- NOTE | 2021-07-04 11:15 | BH.SGPN.GN ---
Behaviors/Verbalizations/Mental Status: []Client alert and oriented, casually dressed and groomed. Eye contact good. Motor activity appropriate. Speech within normal limits. Affect congruent, mood euthymic. Thoughts linear, logical, no signs of hallucinations or delusions. Client Response/Progress/Benefit: []Client engaged throughout AEB providing input, taking notes, and actively participating in challenge activity. Client listened to other participants? ideas and communicated with the group throughout. Able to make connections between activity and stress management skills in daily life. Noting that ?Consistent communication is important for managing stress. In the past lack of communication increased stress in the work place for me?. Client remained attentive and contributed during discussion about the 4 A's of managing stress, expressing connection with the various benefits of each. Shared wanting to continue to practice the skill of altering his situation when faced with stressors this can be done for. Provided the example of altering his work environment by finding a new job. Client seemed to benefit from increased awareness of the impact of stress on mental health and increasing repertoire of stress management strategies. Will continue IOP tx to prevent decompensation, promote mood stability, as well as continue to advocate for use of healthy anger management skills. Narrative Note: []
--- NOTE | 2021-07-05 09:05 | BH.SGPN.GN ---
Behaviors/Verbalizations/Mental Status: Eye contact is good. Motor activity is appropriate. Appearance is casual. Speech is appropriate. Mood is euthymic. Affect is congruent. Thoughts are linear and logical. No evidence of psychosis. Reviewed daily check in sheet with no reports of suicidal ideations, plan, or intent. Client Response/Progress/Benefit: Client was attentive throughout group session, and reported his emotion of the day as content. Client discussed using emotional regulation to avoid arguing with his ex- as a mental health win. Client reported setting a boundary of calling his ex- only, as meaning can be lost in text. Client reported obtaining a new job as a stressor as well as a positive, and appeared to benefit from group discussion and normalization of feelings. Will continue IOP treatment to prevent decompensation, improve boundary setting, and continue to promote mood stability. Narrative Note: []
--- NOTE | 2021-07-05 10:15 | BH.SGPN.GN ---
Behaviors/Verbalizations/Mental Status: [] Eye contact is good. Motor activity is appropriate. Appearance is casual. Speech is Appropriate. Mood is euthymic. Affect is full. Thoughts are linear and logical. No evidence of psychosis. Client Response/Progress/Benefit: [] Pt was an active participant in group discussion and activity. Attentive during psychoeducation on what it means to take action. Pt identified symptoms that he wants to take gain control over which included self-doubt, procrastination, and fear of failure. Reports that if he was able to gain control over these than he would participate in all kinds of experiences. Increased insight into what could be holding patient back from mental wellness and the importance of taking action on symptoms and obstacles rather than avoiding or ignoring. Will continue in IOP to maintain gains, prevent decompensation, and increase healthy coping. Narrative Note: []
--- NOTE | 2021-07-05 11:10 | BH.SGPN.GN ---
Behaviors/Verbalizations/Mental Status: []Client alert and oriented, neatly dressed and groomed. Eye contact good. Motor activity appropriate. Speech within normal limits. Affect congruent, mood euthymic. Thoughts linear, logical, no signs of hallucinations or delusions. Client Response/Progress/Benefit: []Client responded well to session, taking notes and participating in worksheet discussion. Client set a goal to gain control over his procrastination. Client plans to work on this by keeping a log of the things he accomplishes when he starts a project. Client reports he will need to share this goal with close friends to hold himself accountable and he will want to check-in with himself every three days. Progress noted as client has recently quit a job that was toxic to his mental health. Appeared to benefit from identifying a small goal to benefit mental health. Will continue IOP tx for one more day to reinforce healthy coping skills and establish aftercare. Narrative Note: []
--- NOTE | 2021-07-05 12:18 | PCM.BH.PN_ITS ---
Progress Note Progress Note: History of Present Illness/Interim History: [] The patient is a 35-year-old male who is seen in follow-up at the [facility] behavioral health IOP program. I last saw the patient 2 weeks ago and at that time he had just started his Lexapro prescription. He feels that the IOP program has been quite valuable and he has learned skills that have really helped to manage his mental health issues. He has learned strategies to act on issues he feels that he needs to end his life. He recently found a new job at a [employer] which will be less stressful. He was working 6 or 7 days a week at his current job and with the new job he will get weekends off. He has not had any panic attacks in the past few weeks. His mood is improved and he does not feel that he is depressed now. Sleep is good at about 7 hours a night. He denies passive thoughts of , suicidal ideation, homicidal ideation, hallucinations or delusions. Current Psychiatric Medications: [] Lexapro 5 mg p.o. daily (on this 2 weeks) Mental Status Examination: [] Patient is a male who appears normal for stated age and is seen wearing a mask due to the pandemic. He is casually dressed and groomed with good hygiene. He has no psychomotor agitation or retardation. Eye contact is good and speech is normal rate and rhythm and fluent with no pressure. Mood is euthymic. Affect is full and normal. Thought process is goal-directed and organized. Thought content: There is no evidence of passive thoughts of , suicidal ideation, homicidal ideation, hallucinations or delusions. Patient feels hopeful for the future. Judgment is intact. Insight is good. Impulsivity is low. Diagnoses: [] 1. Major depressive disorder, recurrent, moderate (resolving) 2. Attention deficit disorder 3. Anxiety disorder, NOS 4. THC use disorder 5. Primary support, financial and work issues Plan: [] The patient will continue the IOP program but may be discharged this week due to the progress he has made. He felt safe during the interview and if it anytime he does not feel safe he will let us know or go to the emergency room. The risks, options, and possible complications and side effects of the medications were discussed with the patient and he understands and accepts these. He will continue to follow-up with his outpatient psychiatric and medical providers when he is discharged from the program.
== END 2021-07-06 23:59 ==
LOC: BHIOP 08:00
PROVIDERS: Referring Provider Psychiatry & Neurology Psychiatry; Visit Provider Psychiatry & Neurology Psychiatry
DX: F33.1 Major depressive disorder, recurrent, moderate (principal); F98.8 Other specified behavioral and emotional disorders with onset usually occurring in childhood and adolescence; F41.9 Anxiety disorder, unspecified; F12.90 Cannabis use, unspecified, uncomplicated; Z79.899 Other long term (current) drug therapy
CPT/HCPCS: S9480; 90832; 90853

== ENCOUNTER 2021-07-07 09:00 | Outpatient (RCR) | payer OTHER, SELFPAY ==
--- NOTE | 2021-07-07 09:03 | BH.SGPN.GN ---
Behaviors/Verbalizations/Mental Status: []Client alert and oriented, casually dressed and groomed. Eye contact good. Motor activity appropriate. Speech within normal limits. Affect congruent, mood anxious and euthymic. Thoughts linear, logical, no signs of hallucinations or delusions. Reviewed client?s symptom tracker, denies any suicidal ideation, plan, or intent as of 07/07/21. Future oriented Client Response/Progress/Benefit: []Client responded well to session, attentive and providing supportive feedback throughout. Client reports feeling anxious this morning as he starts a new job next week. Discussed that this is a positive and will ultimately be a healthy change but that he is anxious to start something new after 10 years. Reflected on progress he has made while in the IOP program and skills he has found helpful. Shared music as his most helpful resources, as well as beginning to more actively regularly check-in with himself. Discussed plans to continue making self-care and his mental health a priority post IOP discharge. Client to discharge on this date as he has met IOP goals. Recommended continued outpatient tx to maintain gains, continue to address anger management, and prevent decompensation. Narrative Note: []
--- NOTE | 2021-07-07 10:10 | BH.SGPN.GN ---
Behaviors/Verbalizations/Mental Status: []Client alert and oriented, neatly dressed and groomed. Eye contact good. Motor activity appropriate. Speech within normal limits. Affect congruent, mood euthymic. Thoughts linear, logical, no signs of hallucinations or delusions. Client Response/Progress/Benefit: []Pt was a semi-active participant in group discussion. Attentive during psychoeducation on communication styles. Along with peers pt participated in providing insight into the benefits to effective communication on mental health which included; helps us get needs met, resolves problems, improves relationships, establishes expectations, decreases stress, and to express emotions. Pt along with peers able to identify ways that communication can be misinterpreted such as assumptions. Pt connected most with the assertive style of communication, but acknowledges he has been aggressive in the past. Benefited from increased awareness of different communication styles and the importance of communicating effectively to improve mental wellness. Will discharge from IOP tx today as client has met his goals and no longer meets criteria for IOP level of care. Narrative Note: []
--- NOTE | 2021-07-07 11:10 | BH.SGPN.GN ---
Behaviors/Verbalizations/Mental Status:Eye contact is good. Motor activity is appropriate. Appearance is casual. Speech is Appropriate. Mood is euthymic. Affect is congruent. Thoughts are linear and logical. No evidence of psychosis. Client Response/Progress/Benefit: []Pt was a passive participant in group discussion. Attentive during psychoeducation on communication styles (Passive, Passive-Aggressive, Aggressive, and Assertive) and benefits/disadvantages to each style. Along with peers pt participated in providing insight into the benefits to effective communication on mental health. Pt along with peers able to identify ways that communication can be misinterpreted through tone, texting, body language and assumptions. Pt identified he most frequently uses assertive communication style. Pt stated when others use a different style of communication then he will fall into that trap by being aggressive back. Reported he wants to work on the skill of reinforce to help improve communication. Benefited from increased awareness of different communication styles and the importance of communicating effectively to improve mental wellness. Pt is to discharge from [facility] today. Narrative Note: []
--- NOTE | 2021-07-07 11:43 | BH.COMM ---
Communication Note - Communication with Client Communication Note: Met with patient to review aftercare plan and progress.
--- NOTE | 2021-07-07 11:54 | BH.AFTERPLAN ---
Aftercare Plan - Demographics Treatment End Date:: 07/07/21 Psychiatrist:: Disha Cheney Psychiatrist Office #:: [phone] [facility]/IOP Therapist:: Virginia Arzate Therapist Phone #:: [phone] - Plan Details Progress/Aftercare Plan Details:: Anselmo has made significant strides since starting IOP and saw a 74% reduction in overall symptoms since admission. When Anselmo started IOP he was experiencing a depressed mood with isolation, irritability that was impacting his functioning, and was not happy with his career. At discharge, Anselmo reports minimal symptoms of anger and depression. Anselmo has quit a job that was significantly impacting his mental health and plans to start a new job next week. Anselmo also reports a better mindset and an overall better mood. Anselmo contributed to group discussions and consistently followed through with his goals. In individual sessions, Anselmo was receptive to feedback, consistent with homework, and willing to push himself. Anselmo's DSM-5 symptoms for depression decreased by 80%, anger decreased by 100%, and anxiety decreased by 80%. Anselmo plans to follow up with [facility] for individual counseling and psychiatry. Strategies for Success:: 1. Continue to take time to reflect daily on your mood, triggers, happiness, and choices. 2. Progressive muscle relaxation to reduce anxiety, anger, or just to reduce tension. 3. Keep journaling your goals to hold yourself accountable. 4. Listen, play, and make music. This has been an extremely positive creative outlet for you. 5. Ask yourself is this suffering necessary or unnecessary to help you make difficult decisions or make changes. 6. Continue to keep a healthy group of supports. 7. Continue with counseling and medication - Appointments Appointments/Referrals to Other Services:: 1. Follow up with [facility] for counseling and psychiatry. Call to schedule as soon as you get your new insurance. - Medications Home Medications: Home Medications escitalopram oxalate [Lexapro] 5 mg PO DAILY #30 tab 07/05/21
--- NOTE | 2021-07-07 11:55 | BH.DS ---
Discharge Summary - Demographics Date of Admission:: 05/23/21 Discharge Date: 07/07/21 Presenting Problems at Admission:: Client is a 35-year-old male who was self-referred to [facility] due to worsening depression and anxiety over the past year. Client has a history of depression and issues with anger, but client believes his anger has resolved since getting a divorce. Client went through a divorce over the past year and during that time he did not get to see his daughter. Client was supposed to follow up with counseling for his anger, depression, and anxiety, but he never followed up with counseling. At admission, client endorsed a depressed mood, loss of appetite, decreased motivation, irritability, and some isolation. Client also reported noticing knee-jerk reaction to walk off at work when he gets irritated with something. 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 Client also reported four panic attacks in the last two months prior to admission. Client denies any suicidal ideations or homicidal ideations, but client does admit to having passive thoughts of at admission. Discharge Diagnoses:: Major depressive disorder, recurrent, moderate; Attention deficit disorder; Anxiety disorder, NOS; THC use disorder Reason for Discharge:: Client has accomplished his tx goals AEB decreased DSM-5 score and self-report of improved emotional regulation. Client no longer meets criteria for [facility] level of care and will transition to outpatient counseling - Treatment Progress During Treatment & Response: Client has made significant strides since starting IOP and saw a 74% reduction in overall symptoms since admission. When client started IOP he was experiencing a depressed mood with isolation, irritability that was impacting his functioning, and was not happy with his career. At discharge, client reports minimal symptoms of anger and depression. Client has quit a job that was significantly impacting his mental health and plans to start a new job next week. Client also reports a better mindset and an overall improved mood. Client contributed to group discussions and consistently followed through with his goals. In individual sessions, Client was receptive to feedback, consistent with homework, and willing to push himself. Client's DSM-5 symptoms for depression decreased by 80%, anger decreased by 100%, and anxiety decreased by 80%. Issues Still to be Addressed:: Client can benefit from ongoing counseling to reinforce healthy coping skills and maintain gains made in IOP. Client admits to a pattern of not following through with counseling in the past, so client was highly encouraged to establish regular outpatient counseling. Client can also benefit from continuing to practice mindfulness skills, self-reflection, and setting healthy boundaries. Discharge Recommendations/Instructions:: Client selected [facility] to follow up with for outpatient mental health services. Client reports he called to try and schedule and was told he needed to wait until he got his new insurance card. Client encouraged to call again next week once he starts his new job. Discharge Handout: Complete Discharge Handout with client on aftercare options and continuity of care.
== END 2021-07-07 13:03 | disposition home or self-care (01) ==
LOC: BHIOP 09:00
PROVIDERS: Referring Provider Psychiatry & Neurology Psychiatry; Visit Provider Psychiatry & Neurology Psychiatry
DX: F33.1 Major depressive disorder, recurrent, moderate (principal); F90.9 Attention-deficit hyperactivity disorder, unspecified type; F41.9 Anxiety disorder, unspecified; F12.90 Cannabis use, unspecified, uncomplicated
CPT/HCPCS: S9480; 90853